=== PATIENT | male | born 1990 | race Caucasian/White ===

== ENCOUNTER 2017-08-14 14:10 | Emergency (ER) | payer MEDICAID, SELFPAY ==
[2017-08-14 14:12] VITALS: BP 161/128; PULSE 77; RESP 24; TEMP 36.4; O2SAT 99; BMI 19.9
[2017-08-14 14:16] VITALS: BP 114/87; PULSE 83; RESP 20; O2SAT 98
--- NOTE | 2017-08-14 15:06 | EKG12_ITS ---
Test Reason : SUBSTANCE ABUSE Blood Pressure : / mmHG Vent. Rate : 059 BPM Atrial Rate : 059 BPM P-R Int : 104 ms QRS Dur : 102 ms QT Int : 448 ms P-R-T Axes : 062 077 049 degrees QTc Int : 443 ms Sinus bradycardia with sinus arrhythmia with short SC Incomplete right bundle branch block Nonspecific T wave abnormality Abnormal ECG Confirmed by DIONE VILLANUEVA, GWENDOLYN ([id number]), website/blog editor JOSE MALHOTRA ([id number]) on 08/19/2017 2:01:47 PM Referred By: STEF Confirmed By:GWENDOLYN PARHAM MD
--- NOTE | 2017-08-14 15:07 | ED.VISSUMM ---
- ER Visit Summary Date of Service: 08/14/17 Chief Complaint: Anxiety History of Present Illness: The patient is a 26 M with a history of anxiety and drug abuse. Patient states he last used meth around 930 last night. This morning he still feeling more anxious than normal and is concerned that his drugs were laced with something. He denies use of any opiates but states the symptoms remind him of heroin. He does complain of some waxing and waning chest pain. He denies nausea, vomiting, or shortness of breath. He denies suicidal ideation. Physical Examination: Vital signs are unremarkable. Patient is in no acute distress and is nontoxic appearing. Head and neck examination is normal. Heart is regular rate and rhythm. Palpable pulses are noted throughout. Do not appreciate any murmurs. Lungs are clear with good air movement throughout. Abdomen is soft and nontender. Bowel sounds are noted. Extremity examination is unremarkable with full range of motion. Neurologic examination reveals no focal deficits. Test Results: CBC does reveal elevated white count at 16.7 with 80% neutrophils. Chemistry studies revealed dehydration with a BUN of 35 and creatinine 1.32. EKG is sinus at 59 with no sign of ischemia. Urine tox is positive for meth. Emergency Department Course and Treatment: Patient was given a liter and a half of IV fluids along with p.o. Vistaril. On repeat evaluation he is sleeping comfortably. He easily awakens. He has no obvious source of infection. I believe his leukocytosis is likely reactive secondary to his drug use. Treatment Plan: [] Disposition: Discharge Impression: 1. Drug abuse 2. Anxiety This note was generated with [employer] dictation software. It may contain incorrect words, spelling, and punctuation that were not noted in review of the chart prior to signing ED Disposition - Plan for ED Patient: Chief Complaint: Subst Abuse Referrals: Tejal Trejo DO [Primary Care Provider] -
[2017-08-14] MEDS: hydrOXYzine PAM 25 MG Capsule PO (15:28)
[2017-08-14 15:29] VITALS: PULSE 75; RESP 14
[2017-08-14 15:49] LABS: Absolute Lymphocyte Count 2.81 X10^3/ul (0.83-4.51); Absolute Neutrophil Count 13.4 X10^3/uL (2.0-7.7); Basophil# 0.02 X10^3/uL; Basophil% 0.1 % (0-1); Eosinophil# 0.01 X10^3/uL; Eosinophils% 0.1 % (0-5); Hematocrit 44.4 % (40-54); Hemoglobin 15.8 g/dl (13.0-16.5); Lymphocyte # 2.81 X10^3/ul (4.0); Lymphocyte % 16.9 % (19-41); Mean Corp Hgb Conc 35.6 g/gl (32-36); Mean Corpuscular Hgb 31.5 pg (27.0-32.0); Mean Corpuscular Volume 88.6 fL (80-94); Mean Platelet Vol. 9.6 fl (6.2-12.0); Monocyte# 0.38 X10^3/uL; Monocyte% 2.3 % (0-10); Neutrophil # 13.39 X10^3/uL (2.7-7.7); Neutrophil % 80.4 % (47-70); POSITIVE COUNT NO; POSITIVE DIFFERENTIAL NO; POSITIVE MORPHOLOGY NO; Platelet Count 261 K/mm3 (150-450); RBC Distribution Width CV 12.1 % (11.6-14.6); RBC Distribution Width SD 38.8 fl (35.1-43.9); Red Blood Count 5.01 M/mm3 (4.6-6.2); White Blood Count 16.7 K/mm3 (4.4-11.0)
[2017-08-14 15:51] LABS: Anion Gap 11 (5-15); BUN 35 mg/dL (7-18); BUN/Creat Ratio 26.5 RATIO (10-20); Calcium,Total 9.7 mg/dL (8.5-10.1); Chloride 102 mmol/L (98-107); Creatinine, Serum 1.32 mg/dL (0.70-1.30); EST Glomerular Filtration Rate 70 mL/min (>60); Est Glom Filt Rate - Afr Amer 85 mL/min (>60); Estimated Creatinine Clearance 81.41 ml/min; Glucose 99 mg/dL (74-106); Potassium 3.7 mmol/L (3.5-5.1); Sodium Level 136 mmol/L (136-145)
[2017-08-14] MEDS: 0.9% Normal Saline 1,000 ML 999 ML IV (16:05)
[2017-08-14 16:06] VITALS: BP 114/74; PULSE 83; RESP 18; O2SAT 100
[2017-08-14 17:21] VITALS: BP 119/74; PULSE 64; RESP 14; O2SAT 100
[2017-08-14 18:24] LABS: Amphetamine Urine VISTA POSITIVE (<1000 ng/mL); Barbiturate Urine VISTA NEGATIVE (< 200 ng/mL); Benzodiazepine Urine VISTA NEGATIVE (< 200 ng/mL); Cocaine Urine VISTA NEGATIVE (< 300 ng/mL); Ecstacy Urine VISTA POSITIVE (< 500 ng/mL); Methadone Urine VISTA NEGATIVE (< 300 ng/mL); PCP Urine VISTA NEGATIVE (< 25 ng/mL); THC Urine VISTA NEGATIVE (< 50 ng/mL); Vista UDS pH Range 5
[2017-08-14 18:33] VITALS: BP 112/58; PULSE 62; RESP 14; O2SAT 100
--- NOTE | 2017-08-14 18:33 | ED.DEP ---
ED Disposition - Plan for ED Patient: Disposition: Home or Assisted Living Chief Complaint: Subst Abuse Instructions: ED Drug Abuse General Referrals: Tejal Trejo DO [Primary Care Provider] - EIGHTY,ONE [STAFF PHYSICIAN] -
--- NOTE | 2017-08-14 18:54 | ED.RN ---
PT GIVEN WRITTEN AND VERBAL DISCHARGE INSTRUCTIONS AND VERBALIZES UNDERSTANDING. DENIES ANY FURTHER QUESTIONS. IV D/C AND COVERED WITH 2X2 GAUZE DRESSING. PT AMBULATORY OUT OF DEPT BY SELF.
== END 2017-08-14 18:55 | disposition home or self-care (01) ==
PROVIDERS: Emergency Provider Emergency Medicine; Family Provider Family Medicine; PCP Family Medicine
DX: F41.9 Anxiety disorder, unspecified (principal); F12.10 Cannabis abuse, uncomplicated; F15.10 Other stimulant abuse, uncomplicated; Z72.0 Tobacco use
CPT/HCPCS: 80048; 80307; 85025; 93005; 96360; 96361; 99285; J7030; J7040; A4216

== ENCOUNTER 2017-11-12 18:49 | Observation (INO) | payer MEDICAID, SELFPAY ==
[2017-11-12] VITALS (7 sets, daily range): BP systolic 91–126; BP diastolic 61–84; PULSE 58–81; RESP 13–28; TEMP 36–36.8; O2SAT 96–100; BMI 18.4; BMI 19.3; BMI 19.4
[2017-11-12] MEDS: 0.9% Normal Saline 1,000 ML 1000 ML IV ×2 (19:42→19:43)
[2017-11-12] MEDS: LORazepam 2 MG/ML Syringe 1 MG IV (19:43)
[2017-11-12 19:57] LABS: Absolute Neutrophil Count 6.2 X10^3/uL (2.0-7.7); Basophil# 0.06 X10^3/uL; Basophil% 0.6 % (0-1); Eosinophil# 0.01 X10^3/uL; Eosinophils% 0.1 % (0-5); Hematocrit 42.5 % (40-54); Hemoglobin 14.6 g/dl (13.0-16.5); Lymphocyte % 25.6 % (19-41); Mean Corp Hgb Conc 34.4 g/gl (32-36); Mean Corpuscular Hgb 30.5 pg (27.0-32.0); Mean Corpuscular Volume 88.7 fL (80-94); Mean Platelet Vol. 9.9 fl (6.2-12.0); Monocyte# 1.25 X10^3/uL; Monocyte% 12.3 % (0-10); Neutrophil # 6.23 X10^3/uL (2.7-7.7); Neutrophil % 61.3 % (47-70); Platelet Count 265 K/mm3 (150-450); RBC Distribution Width CV 12.1 % (11.6-14.6); RBC Distribution Width SD 38.9 fl (35.1-43.9); Red Blood Count 4.79 M/mm3 (4.6-6.2); White Blood Count 10.2 K/mm3 (4.4-11.0)
[2017-11-12 19:58] LABS: POSITIVE COUNT NO; POSITIVE DIFFERENTIAL NO; POSITIVE MORPHOLOGY NO
[2017-11-12 20:04] LABS: Anion Gap 10 (5-15); BUN 15 mg/dL (7-18); BUN/Creat Ratio 15.5 RATIO (10-20); Chloride 104 mmol/L (98-107); Creatinine, Serum 0.97 mg/dL (0.70-1.30); EST Glomerular Filtration Rate 100 mL/min (>60); Est Glom Filt Rate - Afr Amer 122 mL/min (>60); Estimated Creatinine Clearance 104.57 ml/min; Glucose 104 mg/dL (74-106); Sodium Level 138 mmol/L (136-145)
[2017-11-12 20:16] LABS: CPK Total, Creatine Kinase 347 U/L (39-308)
[2017-11-12 21:12] LABS: D-Dimer Quantitative (DVT/PE) < 0.27 FEU/ug/m (0.27-0.49)
[2017-11-12] MEDS: Ziprasidone IM 20 MG/ML VIAL IM (22:02)
--- NOTE | 2017-11-12 22:24 | PCM.CONS.C ---
Reason for Consult Date of Consultation: 11/12/17 Reason for Consultation: Abnormal EKG History of Present Illness: The patient is a 27 year old M with no previous medical history who was brought in by EMS after colleagues found him outside the [employer]ood[employer] somewhat obtunded after apparently attending a voodoo dinner. He had admitted to using some drugs exact types unknown but probably including meth and in the ER was somewhat belligerent and had an EKG done which demonstrated T-wave inversions noted anteriorly. Cardiac enzymes and d-dimer were noted to be negative. He denied any chest pain or shortness breath or paroxysmal nocturnal dyspnea pedal edema. The emergency room physician sent me the EKG for evaluation and possible triage. The decision was made to admit him and watch him overnight. [] Past Medical History Allergies/Adverse Reactions: Allergies No Known Allergies Allergy (Verified 11/12/17 18:50) Home Medications: Ambulatory Orders Medication Instructions Recorded NK [NK] 08/14/17 Surgical History: appendectomy Smoking Status: Current every day smoker Alcohol: Occasional Drugs: Cocaine, Heroin Review of Systems - Review of Systems General: Reports: Fatigue, Malaise. Denies: Fever, Night Sweats Cardiovascular: Denies: Chest Discomfort, Shortness of Breath, Orthopnea, PND, Peripheral Edema, Palpitations, Lightheadedness, Dizziness, Near Syncope, Syncope Respiratory: Denies: Cough, Sputum Production, Hemoptysis Gastrointestinal: Denies: Hematemesis, Hematochezia, Melena Genitourinary: Denies: Dysuria, Hematuria Skin: Denies: Rash Subjectve: Young man in no apparent distress sleeping and not easy to arouse Objective: Vital Signs Temp Pulse Resp BP Pulse Ox 98.3 F 58 L 13 123/71 H 100 11/12/17 18:51 11/12/17 20:01 11/12/17 20:01 11/12/17 20:01 11/12/17 20:01 Oxygen Flow Rate (L/min) 2 Oxygen Delivery Method Nasal Cannula Weight: 140 lb Body Mass Index (BMI) 18.4 General: Awake, Alert, Oriented x 3 HEENT: PERRL, EOMI, Sclera Non Icteric Neck: Supple, Good ROM, No Lymph Node Enlargement Lungs: Clear to auscultation Cardiovascular: Regular Rhythm, Normal S1, Normal S2, No Murmurs, No Rubs, No Gallops Vascular: No Carotid Bruits, Normal Femoral Pulses, Normal Radial Pulses, Normal Dorsalis Pedal Pulse, Normal Posterior Tibial Pulses Abdomen: Bowel Sounds Present, Soft, Non Tender, No HSM, No Organomegaly Extremities: No Cyanosis, No Clubbing, No edema Neurological: No Focal Motor or Sensory Deficit 11/12/17 19:42: WBC 10.2, RBC 4.79, Hgb 14.6, Hct 42.5, MCV 88.7, MCH 30.5, MCHC 34.4, RDW 12.1, RDW Differential 38.9, Plt Count 265, MPV 9.9, Immature Gran % (Auto) 0.100, Neut % (Auto) 61.3, Lymph % (Auto) 25.6, Crook % (Auto) 12.3 H, Eos % (Auto) 0.1, Baso % (Auto) 0.6, Absolute Neuts (auto) 6.2, Total Counted Not Reportable 11/12/17 19:42: Sodium 138, Potassium 3.0 L, Chloride 104, Carbon Dioxide 24.0, Anion Gap 10, BUN 15, Creatinine 0.97, Est GFR (MDRD) Af Amer 122, Est GFR (MDRD) Non-Af 100, BUN/Creatinine Ratio 15.5, Glucose 104, Calcium 9.0 11/12/17 19:42: Troponin I < 0.015 11/12/17 19:42: D-Dimer Quant (PE/DVT) < 0.27 L Rhythm: EKG: Normal sinus rhythm with T-wave inversions noted in leads II, III and aVF and V3 through V5. Assessment/Plan 1. Abnormal EKG The exact etiology of the above is not known. With his drug history there is a concern as to whether he may have an underlying cardiomyopathy. We did discuss the possibility of him being discharged and following up as an outpatient but it was felt that he was unreliable for this and therefore decision was made to admit him obtain cardiac enzymes and obtain an echocardiogram to assess his left ventricular function. His electrolytes should also be corrected. Depending on the findings of the above further recommendations will be made. At this particular time no medication will be administered. Thank you for allowing me to participate in the care of your patient. Please don't hesitate to call if any issues arise
--- NOTE | 2017-11-12 22:28 | CON.PCM_ITS ---
Reason for Consult Date of Consultation: 11/12/17 Reason for Consultation: Abnormal EKG History of Present Illness: The patient is a 27 year old M with no previous medical history who was brought in by EMS after colleagues found him outside the [employer]ian[employer] somewhat obtunded after apparently attending a sabianism dinner. He had admitted to using some drugs exact types unknown but probably including meth and in the ER was somewhat belligerent and had an EKG done which demonstrated T-wave inversions noted anteriorly. Cardiac enzymes and d-dimer were noted to be negative. He denied any chest pain or shortness breath or paroxysmal nocturnal dyspnea pedal edema. The emergency room physician sent me the EKG for evaluation and possible triage. The decision was made to admit him and watch him overnight. [] Past Medical History Allergies/Adverse Reactions: Allergies No Known Allergies Allergy (Verified 11/12/17 18:50) Home Medications: Ambulatory Orders Medication Instructions Recorded NK [NK] 08/14/17 Surgical History: appendectomy Smoking Status: Current every day smoker Alcohol: Occasional Drugs: Cocaine, Heroin Review of Systems - Review of Systems General: Reports: Fatigue, Malaise. Denies: Fever, Night Sweats Cardiovascular: Denies: Chest Discomfort, Shortness of Breath, Orthopnea, PND, Peripheral Edema, Palpitations, Lightheadedness, Dizziness, Near Syncope, Syncope Respiratory: Denies: Cough, Sputum Production, Hemoptysis Gastrointestinal: Denies: Hematemesis, Hematochezia, Melena Genitourinary: Denies: Dysuria, Hematuria Skin: Denies: Rash Subjectve: Young man in no apparent distress sleeping and not easy to arouse Objective: Vital Signs Temp Pulse Resp BP Pulse Ox 98.3 F 58 L 13 123/71 H 100 11/12/17 18:51 11/12/17 20:01 11/12/17 20:01 11/12/17 20:01 11/12/17 20:01 Oxygen Flow Rate (L/min) 2 Oxygen Delivery Method Nasal Cannula Weight: 140 lb Body Mass Index (BMI) 18.4 General: Awake, Alert, Oriented x 3 HEENT: PERRL, EOMI, Sclera Non Icteric Neck: Supple, Good ROM, No Lymph Node Enlargement Lungs: Clear to auscultation Cardiovascular: Regular Rhythm, Normal S1, Normal S2, No Murmurs, No Rubs, No Gallops Vascular: No Carotid Bruits, Normal Femoral Pulses, Normal Radial Pulses, Normal Dorsalis Pedal Pulse, Normal Posterior Tibial Pulses Abdomen: Bowel Sounds Present, Soft, Non Tender, No HSM, No Organomegaly Extremities: No Cyanosis, No Clubbing, No edema Neurological: No Focal Motor or Sensory Deficit 11/12/17 19:42: WBC 10.2, RBC 4.79, Hgb 14.6, Hct 42.5, MCV 88.7, MCH 30.5, MCHC 34.4, RDW 12.1, RDW Differential 38.9, Plt Count 265, MPV 9.9, Immature Gran % (Auto) 0.100, Neut % (Auto) 61.3, Lymph % (Auto) 25.6, Desha % (Auto) 12.3 H, Eos % (Auto) 0.1, Baso % (Auto) 0.6, Absolute Neuts (auto) 6.2, Total Counted Not Reportable 11/12/17 19:42: Sodium 138, Potassium 3.0 L, Chloride 104, Carbon Dioxide 24.0, Anion Gap 10, BUN 15, Creatinine 0.97, Est GFR (MDRD) Af Amer 122, Est GFR (MDRD ) Non-Af 100, BUN/Creatinine Ratio 15.5, Glucose 104, Calcium 9.0 11/12/17 19:42: Troponin I < 0.015 11/12/17 19:42: D-Dimer Quant (PE/DVT) < 0.27 L Rhythm: EKG: Normal sinus rhythm with T-wave inversions noted in leads II, III and aVF and V3 through V5. Assessment/Plan 1. Abnormal EKG The exact etiology of the above is not known. With his drug history there is a concern as to whether he may have an underlying cardiomyopathy. We did discuss the possibility of him being discharged and following up as an outpatient but it was felt that he was unreliable for this and therefore decision was made to admit him obtain cardiac enzymes and obtain an echocardiogram to assess his left ventricular function. His electrolytes should also be corrected. Depending on the findings of the above further recommendations will be made. At this particular time no medication will be administered. Thank you for allowing me to participate in the care of your patient. Please don't hesitate to call if any issues arise
--- NOTE | 2017-11-12 22:58 | ED.RN ---
PT BECAME COMBATIVE, REFUSED MEDICATIONS. PT GIVEN GEODON BY JACOB TOMLINSON. PT NOW SLEEPING, RESPIRES EVEN AND UNLABORED. NEW IV INITIATED IN THE LEFT AC.
--- NOTE | 2017-11-12 23:01 | PCM.HP.STD ---
Problem List (1) Acute electrocardiogram changes Status: Acute (2) Polysubstance (including opioids) dependence, daily use Status: Acute (3) Amphetamine abuse Status: Chronic History of Present Illness Date of Admission: 11/12/17 Chief Complaint: Agitation and combative for last 4 days The patient is a 27 year old M with history of methamphetamine use for last 2-3 years was brought in by EMS when he was found obtunded, lethargic after attending a mormonism dinner. In the ED, patient was very agitated and combative and was given Ativan and Geodon 20 mg IM. Patient was found sedated until I started examining then he became again calmative. As per the mother and his brother near the bedside he has been having agitation, combative and bizarre behavior and has not slept for last 4 days. Patient snores methamphetamine and probably has cocktail of meth plus heroin Her About 1 AM today. As per the mother patient is having chills, possible subjective fever and had chest pain for about 20 minutes. He was also found to have fecal and urinary incontinence. In ED, his EKG at 1935 hrs. shows normal sinus rhythm with sinus arrhythmia, incomplete right bundle branch block with T waves in inferior and anterolateral leads. Second EKG at 2046 hrs. shows sinus bradycardia at 56 bpm. His previous EKG of 5 25,018 shows sinus bradycardia with sinus arrhythmia and incomplete right bundle branch block but no T-wave inversion. Cardiology was consulted for recent EKG changes. Dr. capellan already saw the patient. Past Medical History Past Medical History (Chronic Problems): Chronic Problems Amphetamine abuse (Chronic) Allergies No Known Allergies Allergy (Verified 11/12/17 18:50) Home Medications: Ambulatory Orders Medication Instructions Recorded NK [NK] 08/14/17 Surgical History: appendectomy Smoking Status: Current every day smoker Alcohol: Occasional Drugs: Cocaine, Heroin Review of Systems Unable to obtain accurate/complete ROS d/t: Patient is sedated and also intermittent agitation and altered mental statu VTE Information - Inpt Only VTE Present on Admission: No VTE Mechan Device Prophylaxis: None VTE Pharm Prophylaxis ordered?: No Reason prophylaxis not ordered:: Procedure Not Indicated Patient Problems: Active and Suspected Problems Acute electrocardiogram changes (Acute) Polysubstance (including opioids) dependence, daily use (Acute) - Physical Exam General: Lethargic, Non-Cooperative, - - Sedated HEENT: Atraumatic, Normocephalic, - - Could not examine pupil. Mild redness present patient is indicated. Not cooperative Oral: Dry Mucosa Neck: Supple, No JVD, Negative Carotid Bruits Lungs: Clear to auscultation, Normal air movement, No rhonchi, No wheeze, No rales Cardiovascular: Regular rate, Normal S1, Normal S2, No murmurs Abdomen: Bowel Sounds Present, Soft, Non Tender, Non-Distended Extremities: No edema, Capillary Refill Less than 3 Seconds Skin: No rashes, No breakdown Musculoskeletal: No Tenderness to Palpation of Joints or Extremities Neurological: Cranial nerves II-XII grossly intact Psych/Mental Status: Normal Affect, Appropriate Vital Signs Temp Pulse Resp BP Pulse Ox 98.3 F 67 15 91/61 100 11/12/17 18:51 11/12/17 22:42 11/12/17 22:42 11/12/17 22:42 11/12/17 22:42 Oxygen Flow Rate (L/min) 2 Oxygen Delivery Method Nasal Cannula Weight: 140 lb Body Mass Index (BMI) 18.4 Laboratory Tests Past 24 Hrs 11/12/17 11/12/17 11/12/17 19:42 19:42 19:42 WBC 10.2 RBC 4.79 Hgb 14.6 Hct 42.5 MCV 88.7 MCH 30.5 MCHC 34.4 RDW 12.1 RDW Differential 38.9 Plt Count 265 MPV 9.9 Immature Gran % (Auto) 0.100 Neut % (Auto) 61.3 Lymph % (Auto) 25.6 Vilas % (Auto) 12.3 H Eos % (Auto) 0.1 Baso % (Auto) 0.6 Absolute Neuts (auto) 6.2 Absolute Lymphs (auto) 2.60 Total Counted Not Reportable D-Dimer Quant (PE/DVT) Sodium 138 Potassium 3.0 L Chloride 104 Carbon Dioxide 24.0 Anion Gap 10 BUN 15 Creatinine 0.97 Estim Creat Clear Calc 104.57 Est GFR (MDRD) Af Amer 122 Est GFR (MDRD) Non-Af 100 BUN/Creatinine Ratio 15.5 Glucose 104 Calcium 9.0 Total Creatine Kinase 347 H Troponin I < 0.015 11/12/17 19:42 WBC RBC Hgb Hct MCV MCH MCHC RDW RDW Differential Plt Count MPV Immature Gran % (Auto) Neut % (Auto) Lymph % (Auto) Vil[place] % (Auto) Eos % (Auto) Baso % (Auto) Absolute Neuts (auto) Absolute Lymphs (auto) Total Counted D-Dimer Quant (PE/DVT) < 0.27 L Sodium Potassium Chloride Carbon Dioxide Anion Gap BUN Creatinine Estim Creat Clear Calc Est GFR (MDRD) Af Amer Est GFR (MDRD) Non-Af BUN/Creatinine Ratio Glucose Calcium Total Creatine Kinase Troponin I Assessment/Plan All Active Problems Acute electrocardiogram changes (Acute) Polysubstance (including opioids) dependence, daily use (Acute) The patient is a 27 year old M with history of methamphetamine use for last 2-3 years was brought in by EMS when he was found obtunded, lethargic after attending a mormonism dinner. In the ED, patient was very agitated and combative and was given Ativan and Geodon 20 mg IM. Patient was found sedated until I started examining then he became again calmative. As per the mother and his brother near the bedside he has been having agitation, combative and bizarre behavior and has not slept for last 4 days. Patient snores methamphetamine and probably has cocktail of meth plus heroin Her About 1 AM today. As per the mother patient is having chills, possible subjective fever and had chest pain for about 20 minutes. He was also found to have fecal and urinary incontinence. In ED, his EKG at 1935 hrs. shows normal sinus rhythm with sinus arrhythmia, incomplete right bundle branch block with T waves in inferior and anterolateral leads. Second EKG at 6 hrs. shows sinus bradycardia at 56 bpm. His previous EKG of 5 ,018 shows sinus bradycardia with sinus arrhythmia and incomplete right bundle branch block but no T-wave inversion. Cardiology was consulted for recent EKG changes. Dr. capellan already saw the patient. 1. Recent EKG changes: Patient is being admitted in PCU for serial troponin. 2D echo tomorrow morning. First troponin is negative. D-dimer is negative. 2. Methamphetamine use and dependence with possibility of heroin: manager practice consult. 3. Acute encephalopathy with agitation and delirium secondary to methamphetamine use: Needs orientation cues from nursing staff. 4 Mild elevated CK, mainly from agitation; does not meet the range of acute rhabdomyolysis: Follow sicca tomorrow morning. IV fluid normal saline 5 Mild hypokalemia: Potassium is 3.0. Potassium on replacement. Check magnesium tomorrow a.m. DVT prophylaxis: Low risk. No prophylaxis indicated. Early ambulation encouraged. Laboratory Results 11/12/17 19:42: WBC 10.2, RBC 4.79, Hgb 14.6, Hct 42.5, MCV 88.7, MCH 30.5, MCHC 34.4, RDW 12.1, RDW Differential 38.9, Plt Count 265, MPV 9.9, Immature Gran % (Auto) 0.100, Neut % (Auto) 61.3, Lymph % (Auto) 25.6, [place] % (Auto) 12.3 H, Eos % (Auto) 0.1, Baso % (Auto) 0.6, Absolute Neuts (auto) 6.2, Absolute Lymphs (auto) 2.60, Total Counted Not Reportable 11/12/17 19:42: Sodium 138, Potassium 3.0 L, Chloride 104, Carbon Dioxide 24.0, Anion Gap 10, BUN 15, Creatinine 0.97, Estim Creat Clear Calc 104.57, Est GFR (MDRD) Af Amer 122, Est GFR (MDRD) Non-Af 100, BUN/Creatinine Ratio 15.5, Glucose 104, Calcium 9.0 11/12/17 19:42: Total Creatine Kinase 347 H, Troponin I < 0.015 11/12/17 19:42: D-Dimer Quant (PE/DVT) < 0.27 L 11/12/17 19:42: Magnesium Pending Clinical Impression(s) from Imaging Studies Chest X-Ray 11/12/17 19:27 IMPRESSION: Stable examination demonstrating no acute cardiopulmonary process. Code Visit OBSV E&M: 17423 Initial observation care L3
--- NOTE | 2017-11-12 23:17 | NURSING ---
CALLED ED CHARGE NURSE SUHAIL JENKINS TO SEND PATIENT TO THE FLOOR.
--- NOTE | 2017-11-12 23:46 | ED.DCSUM_ITS ---
- ER Visit Summary Date of Service: 11/12/17 Chief Complaint: Shortness of breath History of Present Illness: The patient is a [address] Trejo. He is a poor informant. He reports that he snorts methamphetamine. He denies any IV drug abuse. He reports that last night at approximately 1 AM he used meth and is concerned that it was laced with heroin. He reports is been short of breath since that time. Sick continuous sensation that waxes and wanes. It is unchanged exertion or lying flat. In fact he reports this improves with exertion. He has had subjective fever and chills. He denies any cough. He complains of an episode of chest pain proximal and 2 hours ago that lasted 20 minutes. It was a sharp pain. Reports that he does have a history of anxiety and does feel anxious. He denies any suicidal ideation. Patient reports that he has not slept for 4 days. Physical Examination: Vitals: Stable. Afebrile. General: Cachectic and well-developed. Head: Normocephalic atraumatic. Neck: Supple, no lymphadenopathy. No JVD. Nontender. Cardiovascular: Regular rate and rhythm. No murmurs. Respiratory: No respiratory distress. Clear to auscultation bilaterally. Hyperventilating. Abdominal: Soft, nontender, nondistended, normal bowel sounds. No guarding, rebound, or peritoneal signs. Back: Nontender. Extremities: Nontender, no edema. Skin: Normal color, no rash. Neurologic: Alert and oriented ?3. Cranial nerves II through XII are intact. Normal strength and sensation. Mental status exam: Patient appears their stated age. Good posture and grooming. Poor eye contact. Normal rate, volume, and latency of speech. No suicidal or homicidal ideation. No auditory or visual hallucinations. Flow of thought is tangential. Insight and judgment is poor. Test Results: EKG is sinus at 77 with T-wave inversions inferiorly in leads V3 to V6. This is a change from July of this year. Repeat EKG is unchanged. Troponin is negative. D-dimer is negative. CPK is 347. Chem-7 is more for potassium 3.0. CBC is marked for monocytes of 12. Emergency Department Course and Treatment: Patient had an IV placed. Is given a dose of Ativan IV. I wrote for aspirin K-Dur p.o. Patient refused to take these. He has become more agitated. Is given dose of Geodon IM. Treatment Plan: Patient was discussed with Dr. Mars was reviewed the EKGs. Patient is not reliable for outpatient follow-up and will be admitted for further evaluation and treatment. Patient was discussed with Dr. Campbell. Disposition: Admitted in improved condition. Impression: 1. Methamphetamine abuse. 2. Hypokalemia. 3. T-wave inversions. This note was generated with [employer] dictation software. It may contain incorrect words, spelling, and punctuation that were not noted in review of the chart prior to signing ED Disposition - Plan for ED Patient: Disposition: Acute Care Hospital [facility] Chief Complaint: Shortness of Breath
[2017-11-13] VITALS (8 sets, daily range): BP systolic 94–104; BP diastolic 49–63; PULSE 41–57; RESP 16–18; TEMP 36.3–36.7; O2SAT 96–100
[2017-11-13 00:36] LABS: Magnesium 2.2 mg/dL (1.6-2.6)
[2017-11-13 01:29] LABS: CPK Total, Creatine Kinase 241 U/L (39-308)
[2017-11-13] MEDS: 0.9% Normal Saline 1,000 ML 150 ML IV ×2 (03:47→09:28)
[2017-11-13 04:28] LABS: Anion Gap 10 (5-15); BUN 14 mg/dL (7-18); BUN/Creat Ratio 17.5 RATIO (10-20); Chloride 111 mmol/L (98-107); EST Glomerular Filtration Rate 125 mL/min (>60); Est Glom Filt Rate - Afr Amer 152 mL/min (>60); Estimated Creatinine Clearance 122.26 ml/min; Glucose 76 mg/dL (74-106); Potassium 4.5 mmol/L (3.5-5.1); Sodium Level 144 mmol/L (136-145)
--- NOTE | 2017-11-13 05:23 | NURSING ---
Admission weight not obtained due to room changed and bed not zero'd out before patient placed in bed. Pt combative and received geodon in ED prior to arrival to floor so patient was not removed from bed to zero it out to get an accurate weight.
--- NOTE | 2017-11-13 06:14 | NURSING ---
All documentation completed by SN Della reviewed by this RN. This RN agrees with all documentation 11/12/17-11/13/17
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
--- NOTE | 2017-11-13 11:33 | PCM.DC ---
- Discharge Diagnoses Current Active Problems: Current Active and Chronic Problems Acute electrocardiogram changes (Acute) Polysubstance (including opioids) dependence, daily use (Acute) Amphetamine abuse (Chronic) You will use the following diet at home:: No restrictions Your food should be the consistency of: Regular Your liquids should be the consistency of: Regular/Thin Discharge Activity: Return to Normal Activity Additional Instructions: Pursue drug rehab and please discontinue use of all recreational drugs Allergies/Adverse Reactions: Allergies No Known Allergies Allergy (Verified 11/12/17 18:50) Medications to take at Discharge NK [NK] 08/14/17 Primary Care Physician: Tejal Trejo DO [Primary Care Provider] - Please follow up with your Primary Care Physician in: 1-2 weeks Test Results: Test results from this visit will be discussed in further detail at your follow-up appointment, if applicable. Proposed Discharge Date: 11/13/17
--- NOTE | 2017-11-13 14:39 | PCM.DC.SUM ---
<Oscar Escobar - Last Filed: 11/13/17 14:39> Discharge Date and Diagnosis Date of Admission: 11/12/17 Date of Discharge: 11/13/17 - Primary Discharge Diagnosis Acute EKG changes - t wave inversions Toxic encephalopathy Meth abuse Hypokalemia - Secondary Discharge Diagnosis Chronic Problems Amphetamine abuse (Chronic) Hospital Course and Treatment Imaging Results: RAD/Chest 1 View (Portable) IMPRESSION: Stable examination demonstrating no acute cardiopulmonary process. Echo: Interpretation Summary Normal LV size. Left ventricular systolic function is normal. The estimated ejection fraction is 55 %. No evidence for diastolic dysfunction. Structurally normal valves. Consults: Cardiology - Jerad Operations: None Procedures: 2-D Echocardiogram Summary of Care Provided: Physical exam on day of discharge: General: Resting comfortably NAD Psych: A/Ox3 normal affect HEENT: PEARRLA AT NC Neck: Supple NT CV: RRR no m/t/r/g/h Resp: CTA Abd: [id number] Soft NT no guarding or rigidity Ext: DP2+= no edema Skin: W/D normal turgor Lymph/Heme: No active bleeding or adenopathy Neuro: CN2-12 intact Hospital course: The patient is a 27 year old M with a history of 4 years of meth abuse, was brought to the emergency room after being found lethargic at a catholic dinner. On arrival to the emergency room he was very agitated and combative. He was given IM Geodon and ativan. reportedly his behavior was bizarre for the past 4 days. He had an EKG in the ER which showed T wave abnormalities. Cardiology was consulted. He was admitted for overnight monitoring. Troponin was negative x3. D dimer was negative. Echo was obtained in the AM and was unremarkable. He was somewhat lethargic the following morning but otherwise asymptomatic. Social work provided him with resources for mental health and substance abuse. He was discharged home in stable condition and will need to follow up with his PCP in 1-2 weeks. This patient was seen by Oscar Escobar PA-C under the supervision of Doctor Franks. [] Discharge Diet: No Restrictions Discharge Activity: Return to Normal Activity Home Medications: Medications to take at Discharge NK [NK] 08/14/17 Primary Care Physician: Tejal Trejo DO [Primary Care Provider] - Please follow up with your Primary Care Physician in: 1-2 weeks Disposition: Home Minutes spent on discharge:: 35 Patient Condition:: Stable Medical Necessity - Tobacco Use Smoking Status: Current every day smoker Meaningful Use Info Meaningful Use Diagnoses (Choose all that apply): None applicable <Jeremy Franks E - Last Filed: 11/13/17 15:27> Discharge Date and Diagnosis - Secondary Discharge Diagnosis Chronic Problems Amphetamine abuse (Chronic) Hospital Course and Treatment Procedures: 2-D Echocardiogram, EKG Summary of Care Provided: Hospitalist note: Discharge summary above reviewed and I agree with above discharge plan. Patient was brought to the emergency room because he was found lethargic at catholic dinner. After arrival to ED, patient was agitated and combative and received 1 dose of IV Geodon and Ativan. He had an EKG done in the emergency room which revealed T-wave inversion in leads II and III as well as V3, V4 and V5 and those changes are new compared to his previous EKGs. Patient denies any chest pain or shortness of breath. His cardiac enzymes were negative ?2. His potassium was low at 3 which was replaced and corrected. Serum magnesium was normal. D-dimer was normal. Chest x-ray showed no acute findings. Patient was treated medically with IV fluids and monitoring. Repeat EKG from today revealed sinus bradycardia, otherwise no acute changes and those T-wave inversion is back to normal. Cardiology consulted and recommended echocardiogram that showed ejection fraction 55%, structurally normal valves and no evidence of diastolic dysfunction. He was bradycardic and this is attributed to being fit and active and doing lots of exercises. He was asymptomatic. Patient discharged home in a stable medical condition, no prescriptions given, recommended follow-up with PCP in 1-2 weeks. - Physical Exam General: Alert, Oriented x3, Cooperative, No apparent distress. HEENT: Atraumatic, PERRLA, EOMI. Neck: Supple, No JVD, Negative Carotid Bruits, Trachea Midline, Thyroid Normal. Lungs: Clear to auscultation, Normal air movement, No rhonchi, No wheeze, No rales. Cardiovascular: Regular rate, Regular Rhythm, Normal S1, Normal S2, PMI Normal, bradycardia. Abdomen: Bowel Sounds Present, Soft, Non Tender, Non-Distended, No Hepato-splenomegaly. Extremities: No clubbing, No cyanosis, No edema Skin: No rashes, No breakdown Neurological: Neuro grossly intact Vital Signs are stable. This note was generated with [employer] dictation software. It may contain incorrect words, spelling, and punctuation that were not noted in checking the note before signing. Minutes spent on discharge:: 24 Patient Condition:: Stable Meaningful Use Info Meaningful Use Diagnoses (Choose all that apply): None applicable Code Visit OBSV E&M: 63754 Observation care discharge
== END 2017-11-13 11:35 | disposition home or self-care (01) ==
LOC: ED 20:05 → PCU 23:13
PROVIDERS: Admitting Provider Internal Medicine; Emergency Provider Emergency Medicine; Family Provider Family Medicine; PCP Family Medicine; Visit Provider Hospitalist
DX: G92 Toxic encephalopathy (principal); E87.6 Hypokalemia; R94.31 Abnormal electrocardiogram [ECG] [EKG]; I45.10 Unspecified right bundle-branch block; F17.200 Nicotine dependence, unspecified, uncomplicated; F15.20 Other stimulant dependence, uncomplicated
CPT/HCPCS: 36415; 71045; 80048; 82550; 83735; 84484; 85025; 85379; 93005; 93306; 96361; 96372; 96374; 99218; 99284; J7030; J7040; A4216; G0378; J3486

== ENCOUNTER 2019-09-05 11:53 | Emergency (ER) | payer MEDICAID, SELFPAY ==
[2019-09-05 11:55] VITALS: BP 143/88; PULSE 94; RESP 16; TEMP 36.6; O2SAT 98; BMI 18.6
--- NOTE | 2019-09-05 12:15 | RAD_ITS ---
STUDY: X-RAY - RIGHT SHOULDER REASON FOR EXAM: Male, 28 years old. No injury, pain TECHNIQUE: 4 view(s) of the shoulder. COMPARISON: None. FINDINGS: Normal glenohumeral articulation. Normal acromioclavicular joint. Normal acromion. Normal humeral head and visualized proximal humerus. The soft tissue structures are unremarkable. Normal visualized pulmonary apex. RAD/Shoulder min 2 Views IMPRESSION: Normal x-ray examination of the shoulder. Electronically Signed: Blu Rollins, at 12:36 EDT , Service support ,
--- NOTE | 2019-09-05 12:19 | ED.VIS.GEN ---
History of Present Illness Chief Complaint: Upper Extremity Injury Informant: Patient Onset: Days Context: Gradual Onset Timing: Continuous Current Severity: Moderate Maximum Severity: Moderate Narrative: The patient is an otherwise healthy 28-year-old male who presents to the emergency department with right posterior shoulder pain. He states is been going on for about a week. 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 He gets a lot of tightness in his shoulder blade with motion. He denies any specific trauma. 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 He is otherwise been in his normal state of health. Prior similar symptoms: No Recent Illness/Hospitalization: No Past Medical History - Allergies and Home Meds Allergies/Adverse Reactions: Allergies No Known Allergies Allergy (Verified 09/05/19 11:54) Primary Care Physician: Care Physician,No Primary [Primary Care Provider] - Past Medical History: None Surgical History: appendectomy Smoking Status: Current every day smoker Review of Systems General: Denies: Chills, Fever, Sweats Eyes: Denies: Visual changes - bilaterally, Diplopia ENT: Denies: Rhinorrhea, Sore throat Cardiovascular: Denies: Chest pain, Palpitations Respiratory: Denies: Dyspnea, Cough, Dyspnea on exertion Gastrointestinal: Denies: Abdominal pain, Nausea, Vomiting, Diarrhea, Melena, Hematochezia Genitourinary: Denies: Dysuria, Hematuria, Frequency Musculoskeletal: Denies: Back pain, Extremity Pain Skin: Denies: Rash, Wounds Neurological: Denies: Headache, Weakness, Numbness Physical Exam Vital Signs/Narrative: Vital Signs Temp Pulse Resp BP Pulse Ox 09/05/19 11:55 97.9 F 94 16 143/88 H 98 Inital Vital Signs reviewed: Yes General: Well nourished, Well developed, No Acute Distress Head: Normocephalic, Atraumatic Eyes: Perrl, EOMI ENT: Moist mucous membranes, No rhinorrhea Neck: Supple, Nontender Cardiovascular: Regular rate, Regular rhythm, No murmurs Respiratory: No distress, CTA bilaterally, Chest nontender Abdomen: Soft, Nontender, Nondistended, Normal bowel sounds Back: Nontender, Normal Inspection Extremities: No edema, Tenderness - Patient is point tender in the rhomboid musculature. There is no step-off. Skin: Normal color, No rash Neurological: Alert, Oriented x3, Cranial nerves II-XII grossly intact, Normal Strength, Normal Sensation Psychological: Normal affect, Normal Mood Diagnostic/Tx/Re-eval Clinical Impression(s) from Imaging Studies Shoulder X-Ray 09/05/19 12:15 IMPRESSION: Normal x-ray examination of the shoulder. Electronically Signed: Blu Rollins, at 12:36 EDT , Service support , - Medical Decision Making The patient symptoms do seem entirely muscular. He is point tender near the rhomboid musculature. There is no gross laxity and he has no report of trauma. I did obtain x-rays of the shoulder which are unremarkable. I am going to treat the patient with anti-inflammatories and antispasmodics and have him follow-up with orthopedics as needed. Impression 1. Right posterior shoulder strain with muscular spasm ED Disposition - Plan for ED Patient: Instructions: ED Shoulder Sprain Prescriptions: cycloBENZAPRine HCl [Flexeril] 10 mg PO TID PRN #20 tab PRN Reason: Muscle Spasm Prescription Printed Naproxen [Naprosyn] 500 mg PO BID PRN #20 tab Prescription Printed Referrals: Care Physician,No Primary [Primary Care Provider] -
== END 2019-09-05 13:04 | disposition home or self-care (01) ==
LOC: ED 12:26
PROVIDERS: Emergency Provider Emergency Medicine
DX: S46.911A Strain of unspecified muscle, fascia and tendon at shoulder and upper arm level, right arm, initial encounter (principal); F17.200 Nicotine dependence, unspecified, uncomplicated; X58.XXXA Exposure to other specified factors, initial encounter
CPT/HCPCS: 73030; 99282

== ENCOUNTER 2021-05-15 09:23 | Emergency (ER) | payer MEDICAID, SELFPAY ==
[2021-05-15 09:24] VITALS: BP 154/100; PULSE 97; RESP 16; TEMP 36.2; O2SAT 99; BMI 20.5
--- NOTE | 2021-05-15 09:40 | EX.ED.DYSGE1 ---
HPI History of Present Illness Chief Complaint: Nausea/Vomiting Informant: patient Narrative Narrative: Patient presents with some nausea that started yesterday morning. He has had some soft stools also. He has not vomited. He is actually still able to eat and drink. Eating and drinking does make the nausea a little bit worse but does not induce vomiting. He has had no fevers chills runny nose sore throat congestion cough. He does not have any abdominal pain. He has not seen blood in the stool although it has been softer. He is already had appendectomy when he was younger. No known sick contacts. He was just concerned because the nausea still going on. He also has no chest or pulmonary symptoms. No headaches. No chronic medical conditions No current medications No known allergies Surgery is appendectomy years ago Prior history of amphetamine and polysubstance abuse. Denies now. Denies alcohol. [facility] Medical History Anxiety Bipolar disorder Depression Home Medications cyclobenzaprine 10 mg PO TID PRN #20 tab 09/05/19 [Rx Last Taken Unknown] naproxen 500 mg PO BID PRN #20 tab 09/05/19 [Rx Last Taken Unknown] ondansetron 4 mg PO Q8H PRN #10 tab 05/15/21 [Rx Last Taken Unknown] Allergy/AdvReac Type Severity Reaction Status Date / Time No Known Allergies Allergy Verified 09/05/19 11:54 Surgical History Hx of appendectomy Social History Smoking Status: Current every day smoker tobacco type: cigarettes ROS ROS ED Constitutional Constitutional ED: Denies chills or fever(s) Eyes Eyes: Denies change in vision ENT ENT ED: Denies rhinorrhea or sore throat Cardiovascular Cardiovascular: Denies chest pain Respiratory/Chest Respiratory/Chest: Denies cough, dyspnea or sputum Gastrointestinal Gastrointestinal: Reports nausea; Denies abdominal pain, constipation, diarrhea, melena or vomiting Genitourinary Genitourinary ED: Denies dysuria, hematuria or urinary frequency Musculoskeletal Musculoskeletal: Denies arthralgias or myalgias Integumentary Denies rash Neurologic Neurologic: Denies headache(s) Endocrine Endocrinology: Denies polydipsia or polyuria Allergic/Immunologic Allergic/Immunologic ED: Denies urticaria EXAM Physical Exam Const Vital Signs: 05/15/21 09:24 05/15/21 11:00 Temperature 97.1 F L Temperature Source Temporal Pulse Rate 97 Respiratory Rate 16 Blood Pressure 154/100 H 122/89 H Blood Pressure Mean 118 100 Pulse Ox 99 99 Oxygen Delivery Method Room Air Room Air Positive well nourished and well developed General Appearance ED: well developed and NAD; Negative for cyanotic, diaphoretic or pallor HEENT Reports moist mucous membranes; Denies dry mucous membranes Mouth ED: No dry mucous membranes Mouth: No dry mucous membranes Eyes General Eye ED: Negative for pale conjunctiva or scleral icterus Neck no JVD Resp normal respiratory effort and clear to auscultation bilaterally Effort and Inspection: Negative for pain with movement Auscultation: Negative for rales, rhonchi or wheezes Cardio regular rate and regular rhythm GI normal to inspection, nondistended, normoactive bowel sounds, non-tender, non-distended and no masses Auscultation: normoactive bowel sounds Palpation: soft; Negative for guarding Back/Spine no CVA tenderness Extremity normal to inspection General Extremety ED: Negative for edema or tenderness General Extremity: Negative for edema Neuro Sensorium / Orientation: alert Psych mental status grossly normal Skin no rashes or lesions noted General Skin Exam: Negative for jaundice or pallor MDM MDM MDM Narrative Medical decision making narrative: Patient feels much better after treatment. His abdomen is benign. We will get him home. We discussed reasons to return turn including fevers, pain, vomiting or other concerns. Discharge Plan Triage Chief Complaint: Nausea/Vomiting ED Provider: Junito Pires Dx/Rx/DC Orders Clinical Impression: Nausea Instructions: Nausea Vomit Control Prescriptions: New ondansetron 4 mg tablet,disintegrating 4 mg PO Q8H PRN (Reason: nausea and vomiting) Qty: 10 RF: 0 No Action cyclobenzaprine 10 MG tablet 10 mg PO TID PRN (Reason: Muscle Spasm) Qty: 20 RF: 0 naproxen 500 MG tablet 500 mg PO BID PRN Qty: 20 RF: 0 Primary Care Provider: Care Physician,No Primary Referrals: Dakota Wilde DO [STAFF PHYSICIAN] - 1-2 Days if not improving Care Physician,No Primary [Primary Care Provider] - Disposition Disposition: Home, Self Care
[2021-05-15] MEDS: Ondansetron ODT 4 MG Tablet PO (09:49)
[2021-05-15 11:00] VITALS: BP 122/89; O2SAT 99
== END 2021-05-15 11:49 | disposition home or self-care (01) ==
PROVIDERS: Emergency Provider Emergency Medicine; Visit Provider Emergency Medicine
DX: R11.2 Nausea with vomiting, unspecified (principal); F17.210 Nicotine dependence, cigarettes, uncomplicated
CPT/HCPCS: 99282

== ENCOUNTER 2021-05-17 09:02 | Emergency (ER) | payer MEDICAID, SELFPAY ==
[2021-05-17 09:02] VITALS: BP 154/90; PULSE 90; RESP 16; TEMP 36.2; O2SAT 100; BMI 20.9
--- NOTE | 2021-05-17 10:04 | EX.ED.DYSGE1 ---
HPI History of Present Illness Chief Complaint: Rash Narrative Narrative: Patient's had a rash on his forearms for couple days. 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 Only rash is on the volar forearms bilaterally. He wears gloves and is not under the glove area. He does not feel ill or sick. Nothing he knows of makes it better but he has not tried anything on it. No fevers chills nausea vomiting. No rash in any other areas. PFSH PFS Medical History Anxiety Bipolar disorder Depression Home Medications cyclobenzaprine 10 mg PO TID PRN #20 tab 09/05/19 [Rx Last Taken Unknown] naproxen 500 mg PO BID PRN #20 tab 09/05/19 [Rx Last Taken Unknown] ondansetron 4 mg PO Q8H PRN #10 tab 05/15/21 [Rx Last Taken Unknown] hydrocortisone 1 applic TOPICAL BID 7 Days #30 g 05/17/21 [Rx Last Taken Unknown] Allergy/AdvReac Type Severity Reaction Status Date / Time No Known Allergies Allergy Verified 09/05/19 11:54 Surgical History Hx of appendectomy Social History Smoking Status: Current every day smoker tobacco type: cigarettes ROS ROS ED Constitutional Constitutional ED: Denies chills or fever(s) Eyes Eyes: Denies blurry vision ENT ENT ED: Denies rhinorrhea or sore throat Respiratory/Chest Respiratory/Chest: Denies cough Gastrointestinal Gastrointestinal: Denies nausea or vomiting Musculoskeletal Musculoskeletal: Denies arthralgias or myalgias Integumentary Reports rash Neurologic Neurologic: Denies headache(s) or weakness Allergic/Immunologic Allergic/Immunologic ED: Denies mouth swelling or urticaria EXAM Physical Exam Const Vital Signs: 05/17/21 09:02 Temperature 97.2 F L Temperature Source Temporal Pulse Rate 90 Respiratory Rate 16 Blood Pressure 154/90 H Blood Pressure Mean 111 Pulse Ox 100 Oxygen Delivery Method Room Air Positive well nourished and well developed General Appearance ED: well developed and NAD; Negative for cyanotic or diaphoretic HEENT Reports moist mucous membranes HEENT Narrative: No petechiae. Eyes General Eye ED: Negative for pale conjunctiva or scleral icterus Neck no JVD Resp normal respiratory effort GI normal to inspection, nondistended, normoactive bowel sounds and non-tender Palpation: soft Back/Spine no CVA tenderness Extremity Extremity Narrative: Bilateral forearms have raised red areas that look like contact dermatitis. There is no blisters. There is no pustules. This does not represent as diffuse hives all over though. This is really isolated to bilateral volar forearms a little bit more on the left than the right. No involvement of palms. No involvement of the dorsum of the arms. Neuro Sensorium / Orientation: alert Skin Skin Narrative: See above. MDM MDM MDM Narrative Medical decision making narrative: Patient's rash and exposure can are consistent with a contact dermatitis. Topical ointment and avoidance of what ever is bothering him is the treatment. I explained he needs to pay significant attention to exposures. He needs to make sure he does not get chemicals on his clothing that are keeping that material next to his skin for a long period of time. Discharge Plan Triage Chief Complaint: Rash ED Provider: Junito Pires Dx/Rx/DC Orders Clinical Impression: Contact dermatitis Instructions: ED Contact Dermatitis Prescriptions: New hydrocortisone 2.5 % cream 1 applic topical BID 7 Days Qty: 30 RF: 0 No Action cyclobenzaprine 10 MG tablet 10 mg PO TID PRN (Reason: Muscle Spasm) Qty: 20 RF: 0 naproxen 500 MG tablet 500 mg PO BID PRN Qty: 20 RF: 0 ondansetron 4 mg tablet,disintegrating 4 mg PO Q8H PRN (Reason: nausea and vomiting) Qty: 10 RF: 0 Primary Care Provider: Care Physician,No Primary Referrals: Daniela Copeland MD [STAFF PHYSICIAN] - 1 Week if not improving Care Physician,No Primary [Primary Care Provider] - Disposition Disposition: Home, Self Care
[2021-05-17 10:09] VITALS: RESP 18
== END 2021-05-17 10:41 | disposition home or self-care (01) ==
LOC: ED 10:24
PROVIDERS: Emergency Provider Emergency Medicine; Visit Provider Emergency Medicine
DX: L25.9 Unspecified contact dermatitis, unspecified cause (principal); F17.210 Nicotine dependence, cigarettes, uncomplicated
CPT/HCPCS: 99282

== ENCOUNTER 2021-09-19 15:48 | Emergency (ER) | payer MEDICAID, SELFPAY ==
[2021-09-19 15:48] VITALS: BP 131/83; PULSE 84; RESP 16; TEMP 37.3; O2SAT 98; BMI 19.6
--- NOTE | 2021-09-19 16:24 | EX.ED.DYSGE1 ---
HPI <GAVIN Perez - Last Filed: 09/19/21 17:05> History of Present Illness Chief Complaint: Ear Problem Narrative Narrative: 30-year-old male with no significant ankle history presents to the emergency department with complaints of right ear pain, throat pain for last 2 days. Patient has felt generalized fatigue, subjective fever and chills, patient is here for evaluation. Denies any nausea vomiting. Patient denies any drainage, denies it being on any pools or bodies of water. Denies any sick contacts PFSH <GAVIN Perez - Last Filed: 09/19/21 17:05> [facility] Medical History Anxiety Bipolar disorder Depression Home Medications cyclobenzaprine 10 mg tablet 10 mg PO TID PRN Muscle Spasm #20 tabs 09/05/19 [Rx Last Taken Unknown] naproxen 500 mg tablet 500 mg PO BID PRN #20 tabs 09/05/19 [Rx Last Taken Unknown] ondansetron 4 mg disintegrating tablet 4 mg PO Q8H PRN nausea and vomiting #10 tabs 05/15/21 [Rx Last Taken Unknown] hydrocortisone 2.5 % topical cream 1 applic topical BID 7 days #30 grams 05/17/21 [Rx Last Taken Unknown] penicillin V potassium 500 mg tablet 500 mg PO 4X/DAY #28 tabs 09/19/21 [Rx Last Taken Unknown] Allergy/AdvReac Type Severity Reaction Status Date / Time No Known Allergies Allergy Verified 09/19/21 15:48 Surgical History Hx of appendectomy Social History Smoking Status: Current every day smoker tobacco type: cigarettes ROS <GAVIN Perez - Last Filed: 09/19/21 17:05> ROS ED ROS Narrative Constitutional: Negative for fever, chills, weight loss, weakness Eyes: Negative for vision loss, vision change, double vision ENT: Negative for any positive or sore throat, right ear pain Cardiovascular: Negative for any chest pain, tightness, palpitations Respiratory: Negative for any cough, sputum production, hemoptysis, dyspnea, dyspnea on exertion, orthopnea Gastrointestinal: Negative for any abdominal pain, nausea, vomiting, diarrhea, constipation, blood in stool, blood in vomit : Negative for any urinary frequency, dysuria, retention, blood in urine Muscle skeletal: Negative for any muscle joint pain, stiffness, myalgias, arthralgias, neck pain, back pain Neurological: Negative for any headache, syncope, numbness or tingling, dizziness Skin: Negative for any rashes, lumps, itching, abrasions, lacerations Psychiatric: Negative for any depression, anxiety, stress, suicidal ideation, homicidal ideation Hematologic: Negative for any easy bruising, excessive bruising, easy bleeding Allergies: Negative for any eczema, hives, rash EXAM <GAVIN Perez - Last Filed: 09/19/21 17:05> Physical Exam Narrative Exam Narrative: Vital signs reviewed. HEET: Head normocephalic atraumatic, patient's left ear is within normal limits, patient's right ear shows a decreased light reflex, slight erythema. Posterior pharynx is clear, moist mucous membranes. Nares clear bilaterally. She has +3 tonsils with exudate bilaterally. Negative for any deep tissue infection, negative for any abscess. Neck: Supple with no lymphadenopathy or tenderness. No signs of meningismus, negative jolt sign. Cardiac: Regular rate and rhythm no murmurs gallops or rubs, equal peripheral pulses bilaterally. Respiratory: Lungs clear to auscultation bilaterally. No chest tenderness. Abdomen: Soft, nontender, nondistended. No abdominal bruit or pulsatile masses. No hepatosplenomegaly Extremities: No peripheral edema, no signs of gross trauma or deformity. Active full range of motion of all extremities. Neuro: Cranial nerves II through XII intact, no focal neurological deficits. Skin: Clean dry and intact with no rash, purpura, petechiae, vesicles or pustules. Backs/flank: No CVA tenderness, no midline spinal tenderness, no deformity. Psych: Normal mood and affect. No SI, HI or acute psychosis. Const Vital Signs: 09/19/21 15:48 Temperature 99.1 F Temperature Source Temporal Pulse Rate 84 Respiratory Rate 16 Blood Pressure 131/83 H Blood Pressure Mean 99 Pulse Ox 98 Oxygen Delivery Method Room Air <Dr. Blayne Aquino MD - Last Filed: 09/19/21 18:37> Physical Exam Const Vital Signs: 09/19/21 15:48 Temperature 99.1 F Temperature Source Temporal Pulse Rate 84 Respiratory Rate 16 Blood Pressure 131/83 H Blood Pressure Mean 99 Pulse Ox 98 Oxygen Delivery Method Room Air [facility] <GAVIN Perez - Last Filed: 09/19/21 17:05> [facility] Lab Data Labs: Laboratory Results - last 24 hr 09/19/21 16:35 WBC 11.2 H RBC 4.35 L Hgb 13.8 Hct 39.7 L MCV 91.3 MCH 31.7 MCHC 34.8 RDW Std Deviation 38.2 RDW Coeff of Sylvester 11.3 L Plt Count 200 MPV 10.0 Immature Gran % (Auto) 0.400 Neut % (Auto) 72.7 H Lymph % (Auto) 13.1 L Highland % (Auto) 12.2 H Eos % (Auto) 1.2 Baso % (Auto) 0.4 Absolute Neuts (auto) 8.2 H Absolute Lymphs (auto) 1.47 Nucleated RBC % 0 Treatment and Re-Evaluation Narrative: Patient appears well, patient appears nontoxic, vital signs are stable. Patient presents to the emergency department right ear pain as well sore throat. Patient did receive a rapid strep as well as a CBC concerning for strep infection or mononucleosis. Patient was positive for rapid strep. Patient will be treated with Pen-Vee K, he will be treated 4 times a day for 7 days. He will take Motrin Tylenol for discomfort. Patient verbally understands the importance of follow-up. Patient is stable for discharge instructed return for any worsening symptoms <Dr. Blayne Aquino MD - Last Filed: 09/19/21 18:37> [facility] Narrative Medical decision making narrative: I have personally performed a face to face assessment of the patient and have reviewed the KIAN Note. I performed a substantive portion of the visit including all aspects of the following. My hurt findings include: History is remarkable sore throat, ear pain that started 2 days ago. He denies fever. Denies cough. Denies rhinorrhea. He does endorse fatigue. He denies abdominal pain. Exam is patient appears ill but not toxic. Vital signs were noted. HEENT exam is remarkable for exudative tonsillitis. Nares patent with no discharge. TMs unremarkable retracted left TM only. Shotty cervical nodes anteriorly. Trachea midline. No in-store extra stridor. No dysphonia. Heart is regular without murmur, gallop or rub. There is no history of rheumatic fever, heart murmur, SBE or IV drug use. Patient denies rash. Medical Decision Making patient Centor score is 2. Rapid strep was obtained. Rapid strep was positive. He was treated with penicillin. CBC was obtained to assess for atypical lymphocytes since he has very large tonsils with significant exudate to evaluate for mononucleosis. Monospot test was not obtained since his illness is only been 2 days and has a low sensitivity at 2 days. Other additions or changes: None Lab Data Attestation: I reviewed the patient's lab results. Labs: Laboratory Results - last 24 hr 09/19/21 16:35 WBC 11.2 H RBC 4.35 L Hgb 13.8 Hct 39.7 L MCV 91.3 MCH 31.7 MCHC 34.8 RDW Std Deviation 38.2 RDW Coeff of Sylvester 11.3 L Plt Count 200 MPV 10.0 Immature Gran % (Auto) 0.400 Neut % (Auto) 72.7 H Lymph % (Auto) 13.1 L Highland % (Auto) 12.2 H Eos % (Auto) 1.2 Baso % (Auto) 0.4 Absolute Neuts (auto) 8.2 H Absolute Lymphs (auto) 1.47 Nucleated RBC % 0 Discharge Plan Triage Chief Complaint: Ear Problem ED Midlevel Provider: Dimitry Aguillon ED Provider: Blayne Aquino Dx/Rx/DC Orders Clinical Impression: Strep sore throat Prescriptions: New penicillin V potassium 500 mg tablet 500 mg PO 4X/DAY Qty: 28 0RF No Action cyclobenzaprine 10 MG tablet 10 mg PO TID PRN (Reason: Muscle Spasm) Qty: 20 0RF naproxen 500 MG tablet 500 mg PO BID PRN Qty: 20 0RF ondansetron 4 mg tablet,disintegrating 4 mg PO Q8H PRN (Reason: nausea and vomiting) Qty: 10 0RF hydrocortisone 2.5 % cream 1 applic topical BID 7 Days Qty: 30 0RF Primary Care Provider: Care Physician,No Primary Referrals: Elizabeth Banegas MD [STAFF PHYSICIAN] - Care Physician,No Primary [Primary Care Provider] - Activity Restrictions/Additional Instructions: You are being diagnosed with strep throat, take the penicillin until empty, throw the bottle away empty. Take ibuprofen, Tylenol for any pain Print Language: Tongan Disposition Disposition: Home, Self Care Discharge Date/Time: 09/19/21 17:16
[2021-09-19 16:50] LABS: Absolute Lymphocyte Count 1.47 X10^3/uL (0.83-4.51); Absolute Neutrophil Count 8.2 X10^3/uL (2.0-7.7); Basophil# 0.05 X10^3/uL; Basophil% 0.4 % (0-1); Eosinophil# 0.13 X10^3/uL; Eosinophils% 1.2 % (0-5); Hematocrit 39.7 % (40-54); Hemoglobin 13.8 g/dL (13.0-16.5); Lymphocyte # 1.47 X10^3/ul (0.83-4.51); Lymphocyte % 13.1 % (19-41); Mean Corp Hgb Conc 34.8 g/dL (32-36); Mean Corpuscular Hgb 31.7 pg (27.0-32.0); Mean Corpuscular Volume 91.3 fL (80-94); Monocyte# 1.37 X10^3/uL; Monocyte% 12.2 % (0-10); NRBC Flagged by Analyzer 0 % (0-5); Neutrophil # 8.17 X10^3/uL (2.7-7.7); Neutrophil % 72.7 % (47-70); Platelet Count 200 K/mm3 (150-450); RBC Distribution Width CV 11.3 % (11.6-14.6); RBC Distribution Width SD 38.2 fl (35.1-43.9); Red Blood Count 4.35 M/mm3 (4.6-6.2); White Blood Count 11.2 K/mm3 (4.4-11.0)
== END 2021-09-19 17:16 | disposition home or self-care (01) ==
PROVIDERS: Nurse Practitioner; Emergency Provider Emergency Medicine; Visit Provider Emergency Medicine
DX: J02.0 Streptococcal pharyngitis (principal); F17.210 Nicotine dependence, cigarettes, uncomplicated
CPT/HCPCS: 85025; 87077; 87880; 99282

== ENCOUNTER 2022-05-30 14:38 | Emergency (ER) | payer MEDICAID, SELFPAY ==
[2022-05-30 14:40] VITALS: BP 134/78; PULSE 78; RESP 16; TEMP 36.6; O2SAT 98; BMI 19.7
--- NOTE | 2022-05-30 15:11 | CT_ITS ---
STUDY: CT BRAIN WITHOUT CONTRAST REASON FOR EXAM: Male, 31 years old. Confusion. Memory issues. Multi drug use. RADIATION DOSAGE (If Supplied By Facility): CTDIvol = ( 44.99 ) mGy, DLP = ( 812.98 ) mGycm TECHNIQUE: Transaxial CT imaging of the brain was performed without administration of intravenous contrast material. Individualized dose optimization techniques were used for this CT. COMPARISON: No relevant priors. FINDINGS: Normal soft tissue structures. Normal calvarium. Normal size ventricles and extra-axial spaces for the patient''s age. Normal white matter tracts of the cerebral hemispheres. Normal basal ganglia and thalami. Normal brainstem. Normal cerebellum. There is no intracranial hemorrhage. There are no findings of an acute ischemic infarction. Normal visualized paranasal sinuses. CT/Brain/Head without Contrast IMPRESSION: Normal unenhanced CT scan of the brain. AIDOC was utilized to assist in identifying pertinent positive findings in this case. Electronically Signed: Zechariah Childs DO at 16:03 EST ,
--- NOTE | 2022-05-30 15:13 | EX.ED.DYSGE1 ---
HPI History of Present Illness Chief Complaint: Mental Health Informant: patient Narrative Narrative: Patient is wondering if he is forgetting things. At first he says this has been going on for a long time. He then states that he its been going on more since Thursday or Thursday. He states that people such as his family are getting upset with him. He gets the impression that he said something to upset them but he does not recall saying anything to upset them. He is not hearing voices or seeing things. He admits he has had depression and used to be on Zoloft but it was years ago. He has been working a new job for the last 2 weeks that is second shift but states he is used to working second shift so the sleep cycle does not bother him. He has been eating and drinking. He has not felt ill. He just states that it seems like people are upset with him and he is not exactly sure why. It sounds like this is a chronic problem but worse recently. He is not able to give me any specific examples of this occurring. I have to ask him most questions many times. He tends to mumble and this does make hearing difficult. But his story is consistent. He is not at all confused. [facility] Medical History Anxiety Bipolar disorder Depression Home Medications cyclobenzaprine 10 mg tablet 10 mg PO TID PRN Muscle Spasm #20 tabs 09/05/19 [Rx Last Taken Unknown] naproxen 500 mg tablet 500 mg PO BID PRN #20 tabs 09/05/19 [Rx Last Taken Unknown] ondansetron 4 mg disintegrating tablet 4 mg PO Q8H PRN nausea and vomiting #10 tabs 05/15/21 [Rx Last Taken Unknown] hydrocortisone 2.5 % topical cream 1 applic topical BID 7 days #30 grams 05/17/21 [Rx Last Taken Unknown] penicillin V potassium 500 mg tablet 500 mg PO 4X/DAY #28 tabs 09/19/21 [Rx Last Taken Unknown] Allergy/AdvReac Type Severity Reaction Status Date / Time No Known Allergies Allergy Verified 05/30/22 14:39 Surgical History Hx of appendectomy Social History Smoking Status: Current every day smoker tobacco type: cigarettes ROS ROS ED Constitutional Constitutional ED: Denies chills, fever(s) or subjective Eyes Eyes: Denies change in vision or diplopia ENT ENT ED: Denies rhinorrhea Cardiovascular Cardiovascular: Denies chest pain or palpitations Respiratory/Chest Respiratory/Chest: Denies cough or dyspnea Gastrointestinal Gastrointestinal: Denies abdominal pain, diarrhea, nausea or vomiting Genitourinary Genitourinary ED: Denies hematuria Musculoskeletal Musculoskeletal: Denies myalgias Integumentary Denies rash Neurologic Neurologic: Denies headache(s), paresthesias or weakness Psychiatric Psychiatric: Reports depression; Denies suicidal ideation or suicidal thoughts Endocrine Endocrinology: Denies polydipsia or polyuria Hematologic/Lymphatic Hematologic/Lymphatic: Denies anemia Allergic/Immunologic Allergic/Immunologic ED: Denies urticaria EXAM Physical Exam Narrative Exam Narrative: Patient is awake alert sitting in bed. He looks comfortable. HEENT shows moist mucous membranes. No sign of trauma. Eyes show no icterus or pallor. Lungs are clear bilaterally. Easy breathing. Saturations are normal at 98% on room air. Heart is regular without murmur gallop or rub. Pulses are equal and normal. Abdomen is soft thin and nontender shows no suprapubic or CVA tenderness Extremities show no tenderness. Neurologically he is awake alert to person place time and situation. Psychiatry: He does have a flat affect. He is a little bit slow to answer questions but not excessively so. He denies suicidal homicidal thoughts. He does not appear to have flight of ideas. There is no indication of hallucinations. Const Vital Signs: 05/30/22 14:40 Temperature 97.8 F Temperature Source Temporal Pulse Rate 78 Respiratory Rate 16 Blood Pressure 134/78 H Blood Pressure Mean 96 Pulse Ox 98 Oxygen Delivery Method Room Air MDM MDM MDM Narrative Medical decision making narrative: Patient CBC shows normal hemoglobin and platelets. Minimal nonspecific elevation of the white count. Electrolytes are normal other than potassium minimally low at 3.4. This will self-correct with diet and I discussed this with the patient. Calcium and glucose are also normal. My independent interpretation of the patient's CT scan of the head without contrast shows no mass bleeding or acute process. Final reading is normal unenhanced CT scan of the brain. Lab Data Attestation: I reviewed the patient's lab results. Labs: Laboratory Results - last 24 hr 05/30/22 05/30/22 15:20 15:20 WBC 11.7 H RBC 4.18 L Hgb 13.3 Hct 39.8 L MCV 95.2 H MCH 31.8 MCHC 33.4 RDW Std Deviation 40.4 RDW Coeff of Sylvester 11.7 Plt Count 277 MPV 9.6 Immature Gran % (Auto) 0.300 Neut % (Auto) 70.1 H Lymph % (Auto) 14.7 L Sierra % (Auto) 12.8 H Eos % (Auto) 1.2 Baso % (Auto) 0.9 Absolute Neuts (auto) 8.2 H Absolute Lymphs (auto) 1.73 Nucleated RBC % 0 Sodium 144 Potassium 3.4 L Chloride 108 H Carbon Dioxide 31.0 Anion Gap 5 BUN 17 Creatinine 0.92 Estim Creat Clear Calc 110.67 Est GFR (MDRD) Af Amer 125 Est GFR (MDRD) Non-Af 103 BUN/Creatinine Ratio 18.5 Glucose 98 Calcium 9.2 Radiography Diagnostic Testing: Clinical Impression(s) from Imaging Studies Brain CT 05/30/22 15:11 IMPRESSION: Normal unenhanced CT scan of the brain. AIDOC was utilized to assist in identifying pertinent positive findings in this case. Electronically Signed: Zechariah Childs DO at 16:03 EST Reading Location ID and State: [address] [place] [address] Tel [phone], Service support , Discharge Plan Triage Chief Complaint: Mental Health ED Provider: Junito Pires Dx/Rx/DC Orders Clinical Impression: Memory changes Instructions: ED Confusion Prescriptions: No Action cyclobenzaprine 10 MG tablet 10 mg PO TID PRN (Reason: Muscle Spasm) Qty: 20 0RF naproxen 500 MG tablet 500 mg PO BID PRN Qty: 20 0RF ondansetron 4 mg tablet,disintegrating 4 mg PO Q8H PRN (Reason: nausea and vomiting) Qty: 10 0RF hydrocortisone 2.5 % cream 1 applic topical BID 7 Days Qty: 30 0RF penicillin V potassium 500 mg tablet 500 mg PO 4X/DAY Qty: 28 0RF Primary Care Provider: Emil Lopez Referrals: Emil Lopez MD [Med Staff - Industrial Photographer] - 3-5 Days Care Physician,No Primary [Non-Staff] - Disposition Disposition: Home, Self Care
[2022-05-30 15:36] LABS: Absolute Lymphocyte Count 1.73 X10^3/uL (0.83-4.51); Absolute Neutrophil Count 8.2 X10^3/uL (2.0-7.7); Basophil% 0.9 % (0-1); Eosinophil# 0.14 X10^3/uL; Eosinophils% 1.2 % (0-5); Hematocrit 39.8 % (40-54); Hemoglobin 13.3 g/dL (13.0-16.5); Lymphocyte # 1.73 X10^3/ul (0.83-4.51); Lymphocyte % 14.7 % (19-41); Mean Corp Hgb Conc 33.4 g/dL (32-36); Mean Corpuscular Hgb 31.8 pg (27.0-32.0); Mean Corpuscular Volume 95.2 fL (80-94); Mean Platelet Vol. 9.6 fl (6.2-12.0); Monocyte% 12.8 % (0-10); NRBC Flagged by Analyzer 0 % (0-5); Neutrophil # 8.24 X10^3/uL (2.7-7.7); Neutrophil % 70.1 % (47-70); Platelet Count 277 K/mm3 (150-450); RBC Distribution Width CV 11.7 % (11.6-14.6); RBC Distribution Width SD 40.4 fl (35.1-43.9); Red Blood Count 4.18 M/mm3 (4.6-6.2); White Blood Count 11.7 K/mm3 (4.4-11.0)
[2022-05-30 15:50] LABS: Anion Gap 5 (5-15); BUN 17 mg/dL (7-18); BUN/Creat Ratio 18.5 RATIO (10-20); Calcium,Total 9.2 mg/dL (8.5-10.1); Chloride 108 mmol/L (98-107); Creatinine, Serum 0.92 mg/dL (0.70-1.30); EST Glomerular Filtration Rate 103 mL/min (>60); Est Glom Filt Rate - Afr Amer 125 mL/min (>60); Estimated Creatinine Clearance 110.67 ml/min; Glucose 98 mg/dL (74-106); Potassium 3.4 mmol/L (3.5-5.1); Sodium Level 144 mmol/L (136-145)
--- NOTE | 2022-05-30 16:19 | CM.ED ---
Social Work Note Referral Source: Case find Referral Reason: Mental Health SW reviewed patient's chart to review note from triage, patient reports struggling with missing memories but denies SI/HI. SW to review with MD. SW met with MD Pires and reviewed patient's recent symptoms. MD reports patient has a history of depression, current flat affect but denies SI/HI. Patient at ED due to being concerned with forgetting things. Patient reported to MD he has been forgetting things since Thursday, explaining people have been getting mad at the patient due to things he says, however, the patient has been unable to recall what he said. MD to medically clear and will inform ROBYN if further SW eval is necessary. Hilda Jacobo SUCKER MACHINE OPERATOR, [place]
== END 2022-05-30 16:38 | disposition home or self-care (01) ==
PROVIDERS: Emergency Provider Emergency Medicine; PCP Internal Medicine; Visit Provider Emergency Medicine
DX: R41.3 Other amnesia (principal); F32.A Depression, unspecified; F17.210 Nicotine dependence, cigarettes, uncomplicated
CPT/HCPCS: 85025; 80048; 99282; 70450

== ENCOUNTER 2022-05-30 18:10 | Emergency (ER) | payer MEDICAID, SELFPAY ==
[2022-05-30 18:10] VITALS: BP 169/99; PULSE 100; RESP 19; TEMP 35.8; BMI 22.5
--- NOTE | 2022-05-30 18:49 | EX.ED.DYSGE1 ---
HPI History of Present Illness Chief Complaint: Shortness of Breath Informant: patient Narrative Narrative: Patient Lorena presents but now has a complaint of dyspnea. He states he was not short of breath before. But he was walking and got long-term home and noticed that he felt a little short of breath. He does not know if that this was from the cigarette or the cold. But now it is totally resolved. He was not wheezing. He states he made himself cough but has not been coughing. He never had chest pain. He had no palpitations. He denies history of asthma. He denies all other complaints. Patient still has a somewhat flat affect. I asked him if there is anything else he needed to talk about. I explained that is not common that we get young healthy people who have 2 separate visits to the emergency department for 2 separate complaints. I asked him if he has more depression than normal. He states he might. He still denies suicidal or homicidal thoughts. He denies hearing voices or seeing anything. He is very nonspecific. I asked if there is anything else he needs to talk to us because I get the feeling that there is something he wants to talk about but has not yet shared it. He shrugged his shoulders but did not answer specifically. [facility] Medical History Anxiety Bipolar disorder Depression Home Medications cyclobenzaprine 10 mg tablet 10 mg PO TID PRN Muscle Spasm #20 tabs 09/05/19 [Rx Last Taken Unknown] naproxen 500 mg tablet 500 mg PO BID PRN #20 tabs 09/05/19 [Rx Last Taken Unknown] ondansetron 4 mg disintegrating tablet 4 mg PO Q8H PRN nausea and vomiting #10 tabs 05/15/21 [Rx Last Taken Unknown] hydrocortisone 2.5 % topical cream 1 applic topical BID 7 days #30 grams 05/17/21 [Rx Last Taken Unknown] penicillin V potassium 500 mg tablet 500 mg PO 4X/DAY #28 tabs 09/19/21 [Rx Last Taken Unknown] Allergy/AdvReac Type Severity Reaction Status Date / Time No Known Allergies Allergy Verified 05/30/22 18:13 Surgical History Hx of appendectomy Social History Smoking Status: Current every day smoker tobacco type: cigarettes ROS ROS ED Constitutional Constitutional ED: Denies chills or fever(s) Eyes Eyes: Denies change in vision ENT ENT ED: Denies rhinorrhea or sore throat Cardiovascular Cardiovascular: Denies chest pain or palpitations Respiratory/Chest Respiratory/Chest: Reports dyspnea and other Details: Now resolved. See history of present illness Gastrointestinal Gastrointestinal: Denies abdominal pain, nausea or vomiting Genitourinary Genitourinary ED: Denies dysuria Musculoskeletal Musculoskeletal: Denies myalgias Integumentary Denies rash Neurologic Neurologic: Denies headache(s), paresthesias or weakness Psychiatric Psychiatric: Reports depression; Denies anxiety, suicidal ideation or suicidal thoughts Endocrine Endocrinology: Denies polydipsia or polyuria Hematologic/Lymphatic Hematologic/Lymphatic: Denies easy bleeding or easy bruising Allergic/Immunologic Allergic/Immunologic ED: Denies urticaria EXAM Physical Exam Narrative Exam Narrative: Patient is awake and alert. He is sitting quietly on the bed. He has the same quiet voice that he had before. His eye contact is not the best. But he is consistent in his answers. I also note that he has several bags of items with him. These look like groceries. He states that he does have a place to live and to stay. He is not homeless. HEENT shows no trauma. Mucous membranes are moist. Eyes show no icterus. Neck is supple. No stridor. No trouble speaking. Lungs are completely clear. Saturation is not recorded on the initial vitals but it was in fact 100% on room air showing no hypoxia. He has no pain with a deep breath. No rib tenderness. Heart is regular. Rate of about 85. I hear no murmur gallop or rub. He has normal pulses. Abdomen is soft thin and completely nontender Extremities show no tenderness cords edema or asymmetry. Neurologically he is awake alert and appropriate. He is oriented x3. He has a stable gait and coordination. Psychiatry: He does have a somewhat flat affect. But no flight of ideas. No indication of hallucinations. He is denying suicidal homicidal thoughts. He states he might be a little bit more depressed but does have a history of depression and has been off Zoloft for years. But again, no suicidal or homicidal thoughts. Const Vital Signs: 05/30/22 18:10 05/30/22 18:15 Temperature 96.4 F L Temperature Source Temporal Pulse Rate 100 Respiratory Rate 19 H Respiratory Effort Normal Respiratory Depth Normal Respiratory Pattern Normal Blood Pressure 169/99 H Blood Pressure Mean 122 Oxygen Delivery Method Room Air Room Air MDM MDM MDM Narrative Medical decision making narrative: I am concerned about this patient with couple visits and one evening. He has somewhat nonspecific complaints. He seems to have a flat affect. But I am not seeing any acute psychosis or confusion. We will see if crisis can talk to him just to see if we can find out if there is a need that he is not sharing with me that were able to help him with We did have crisis talk to the patient. They also agree that he does not need admission. He is not suicidal homicidal. He evidently does have a history depression which he told me. He has never followed up with visits. They have made appointments and follow-up with him. They will follow-up. He seems to agree to want to do this. But I have no reason to work him up further at this time. He is not hypoxic. His lungs are clear. He has no symptoms at this time. He got mildly short of breath when he was smoking out in the cold. I do not think this patient needs EKG his heart is quite regular. Pulses are normal. He never had chest pain or palpitations. I do not think an x-ray is going to contribute to this. I think we can get him home at this time. I again asked him if there is anything else that he needs, wants or would like to talk about. There is nothing at this time. Discharge Plan Triage Chief Complaint: Shortness of Breath ED Provider: Junito Pires Dx/Rx/DC Orders Clinical Impression: History of dyspnea, Flat affect Instructions: ED Symptoms With Uncertain Cause Prescriptions: No Action cyclobenzaprine 10 MG tablet 10 mg PO TID PRN (Reason: Muscle Spasm) Qty: 20 0RF naproxen 500 MG tablet 500 mg PO BID PRN Qty: 20 0RF ondansetron 4 mg tablet,disintegrating 4 mg PO Q8H PRN (Reason: nausea and vomiting) Qty: 10 0RF hydrocortisone 2.5 % cream 1 applic topical BID 7 Days Qty: 30 0RF penicillin V potassium 500 mg tablet 500 mg PO 4X/DAY Qty: 28 0RF Primary Care Provider: Emil Lopez Referrals: Emil Lopez MD [Primary Care Provider] - 3-5 Days Disposition Disposition: Home, Self Care
== END 2022-05-30 20:04 | disposition home or self-care (01) ==
PROVIDERS: Emergency Provider Emergency Medicine; PCP Internal Medicine; Visit Provider Emergency Medicine
DX: R06.00 Dyspnea, unspecified (principal); F17.210 Nicotine dependence, cigarettes, uncomplicated; R41.3 Other amnesia; F32.A Depression, unspecified
CPT/HCPCS: 70450; 80048; 85025; 99282

== ENCOUNTER 2022-07-12 03:50 | Emergency (ER) | payer MEDICAID, SELFPAY ==
[2022-07-12 03:50] VITALS: BP 125/84; PULSE 105; RESP 18; TEMP 38.6; O2SAT 95; BMI 20.1
--- NOTE | 2022-07-12 04:22 | CT_ITS ---
INDICATION: Right peritonsillar abscess EXAMINATION: CT NECK WITH CONTRAST - CT Soft Tissue Neck W/ Contrast Injection TECHNIQUE: Helically acquired images were obtained of the neck with sagittal and coronal reconstructed images. Individualized dose optimization techniques were used for this CT. IV contrast dosage and agent: 75 mL of Isovue-370. COMPARISON: None. FINDINGS: NASOPHARYNX: Unremarkable. SUPRAHYOID NECK: Right peritonsillar fullness and stranding narrowing the adjacent pharynx. Right peritonsillar rim-enhancing fluid collection measuring approximately 2.0 x 1.5 x 1.8 cm. INFRAHYOID NECK: Unremarkable larynx, hypopharynx, and supraglottis. THYROID: No nodule or mass visualized. SALIVARY GLANDS: Unremarkable. LYMPH NODES: No evidence of adenopathy. VASCULAR STRUCTURES: Unremarkable. VISUALIZED PORTIONS OF THE ORBITS, PARANASAL SINUSES, MASTOID AIR CELLS AND SKULL BASE: Unremarkable. BONES: Unremarkable. THORACIC INLET: Visualized lung apices are clear. CT/Soft Tissue Neck WITH Contrast IMPRESSION: Right peritonsillar abscess. Electronically Signed: Esau Dodd DO at 5:17 EDT ,
[2022-07-12] MEDS: Ondansetron 4 MG/2 ML Vial IV (04:35)
[2022-07-12] MEDS: Morphine 4 MG/ML Syringe IV (04:35)
[2022-07-12] MEDS: Acetaminophen 160 MG/5 ML UDC 650 MG PO (04:37)
[2022-07-12 04:38] LABS: Absolute Lymphocyte Count 1.79 X10^3/uL (0.83-4.51); Absolute Neutrophil Count 18.3 X10^3/uL (2.0-7.7); Basophil# 0.19 X10^3/uL; Basophil% 0.8 % (0-1); Eosinophil# 0.06 X10^3/uL; Eosinophils% 0.3 % (0-5); Hematocrit 39.5 % (40-54); Hemoglobin 13.3 g/dL (13.0-16.5); Lymphocyte # 1.79 X10^3/ul (0.83-4.51); Lymphocyte % 7.5 % (19-41); Mean Corp Hgb Conc 33.7 g/dL (32-36); Mean Corpuscular Hgb 31.7 pg (27.0-32.0); Mean Corpuscular Volume 94.3 fL (80-94); Mean Platelet Vol. 9.3 fl (6.2-12.0); Monocyte# 3.16 X10^3/uL; Monocyte% 13.2 % (0-10); NRBC Flagged by Analyzer 0 % (0-5); Neutrophil # 18.33 X10^3/uL (2.7-7.7); Neutrophil % 76.4 % (47-70); POSITIVE DIFFERENTIAL YES; Platelet Count 261 K/mm3 (150-450); RBC Distribution Width CV 11.6 % (11.6-14.6); Red Blood Count 4.19 M/mm3 (4.6-6.2)
[2022-07-12] MEDS: 0.9% Normal Saline 1,000 ML 999 ML IV (04:39)
[2022-07-12 04:55] LABS: Anion Gap 3 (5-15); BUN 13 mg/dL (7-18); BUN/Creat Ratio 17.6 RATIO (10-20); Calcium,Total 9.4 mg/dL (8.5-10.1); Chloride 100 mmol/L (98-107); Creatinine, Serum 0.74 mg/dL (0.70-1.30); EST Glomerular Filtration Rate 133 mL/min (>60); Est Glom Filt Rate - Afr Amer 161 mL/min (>60); Estimated Creatinine Clearance 140.21 ml/min; Glucose 117 mg/dL (74-106); Potassium 3.7 mmol/L (3.5-5.1); Sodium Level 134 mmol/L (136-145)
[2022-07-12 04:56] LABS: Differential Indicated SCAN CRITERIA MET
[2022-07-12 05:33] LABS: Differential Comment SCANNED
[2022-07-12 05:51] VITALS: BP 112/78; PULSE 72; RESP 15; O2SAT 94
[2022-07-12] MEDS: Tetracaine/Benzocaine/Butamben 1 APPLIC TOPICAL (06:19)
--- NOTE | 2022-07-12 07:37 | EX.ED.DYSGE1 ---
HPI History of Present Illness Chief Complaint: Ear Problem Informant: patient Narrative Narrative: Patient is a 31-year-old male with past medical history of anxiety depression bipolar disorder and polysubstance abuse. He states that over the past 2 days he has noticed some pain in his throat and right ear. He states there is been no discharge from his ear or decreased hearing but he is concerned he has developed an ear infection and with this comes in for evaluation. [facility] Medical History Anxiety Bipolar disorder Depression Home Medications amoxicillin 400 mg-potassium clavulanate 57 mg/5 mL oral suspension 11 ml PO BID 10 days #220 mL 07/12/22 [Rx Last Taken Unknown] oxycodone 5 mg/5 mL oral solution 5 mg (5 mL) PO Q6H PRN pain 3 days #60 mL 07/12/22 [Rx Last Taken Unknown] Allergy/AdvReac Type Severity Reaction Status Date / Time No Known Allergies Allergy Verified 07/12/22 03:53 Surgical History Hx of appendectomy Social History Smoking Status: Current every day smoker tobacco type: cigarettes ROS ROS ED Constitutional Constitutional ED: Denies chills or fever(s) ENT ENT ED: Reports ear pain right; Denies sore throat Cardiovascular Cardiovascular: Denies chest pain Respiratory/Chest Respiratory/Chest: Denies cough or dyspnea Gastrointestinal Gastrointestinal: Denies abdominal pain, diarrhea, nausea or vomiting Genitourinary Genitourinary ED: Denies dysuria Musculoskeletal Musculoskeletal: Denies myalgias Integumentary Denies rash Neurologic Neurologic: Denies headache(s) Hematologic/Lymphatic Hematologic/Lymphatic: Denies easy bleeding or easy bruising EXAM Physical Exam Const Vital Signs: 07/12/22 03:50 07/12/22 05:51 Temperature 101.4 F H Temperature Source Temporal Pulse Rate 105 H 72 Respiratory Rate 18 15 Blood Pressure 125/84 H 112/78 Blood Pressure Mean 97 89 Pulse Ox 95 94 Oxygen Delivery Method Room Air Room Air Positive well nourished and well developed General Appearance ED: well developed HEENT HEENT Narrative: Patient has multiple dental caries noted. There is asymmetric swelling of the right tonsil compared to left with loss of the peritonsillar crypt consistent with right-sided peritonsillar abscess. Despite this there is no change in voice or difficulty with secretions or trismus noted. Eyes PERRL and EOMs intact bilaterally Neck supple Neck Narrative: Positive right sided anterior cervical of adenopathy noted Resp normal respiratory effort and clear to auscultation bilaterally Resp Narrative: No nasal flaring retractions tachypnea or accessory muscle use Cardio regular rate and regular rhythm Extremity normal to inspection Neuro oriented x3 and CN's II-XII intact bilaterally Sensorium / Orientation: alert Psych mental status grossly normal Skin no rashes or lesions noted MDM MDM MDM Narrative Medical decision making narrative: Patient presented to the ER febrile but otherwise with stable blood pressure and in no acute respiratory distress. His physical exam is consistent for a peritonsillar abscess and secondary to this basic blood work and a CT scan of the soft tissue neck was obtained. White count is elevated at 24 but his lactic acid is normal. After he was given liquid Tylenol which he was able to swallow his heart rate improved. The CAT scan showed a 2 x 1.5 x 1.8 cm area of abscess formation consistent with exam. However there is no airway compromise which also correlates with the patient's physical exam. The case was discussed with ENT on-call Dr. Cowan. He states that this time based on its size and the fact there is no airway compromise that I can drain it in the emergency. This was done as documented below. Following this the patient had improvement of his swelling and pain. He was washed in the ER and there is no further bleeding. He remains in no respiratory distress and is still able to tolerate secretions and does not have trismus or change in voice. Therefore at this time we will place him on antibiotics as well as pain medication secondary to the abscess and he can follow-up with ENT on Thursday. He does agree to return to the hospital if he has worsening of symptoms despite antibiotic use Patient had a Cetacaine spray applied to the back of the throat. A tongue depressor was used to displace the cheek and tongue. A #11 blade was used to make a 1 cm incision over top the midportion of the right tonsil. There was expression of blood and purulent material. The patient tolerated procedure well without complication. History & Record Review Discussion w/independent historian: Patient Lab Data Attestation: I reviewed the patient's lab results. Labs: Laboratory Results - last 24 hr 07/12/22 07/12/22 07/12/22 04:33 04:33 04:33 WBC 24.0 H RBC 4.19 L Hgb 13.3 Hct 39.5 L MCV 94.3 H MCH 31.7 MCHC 33.7 RDW Std Deviation 40.0 RDW Coeff of Sylvester 11.6 Plt Count 261 MPV 9.3 Immature Gran % (Auto) 1.800 H Neut % (Auto) 76.4 H Lymph % (Auto) 7.5 L Latimer % (Auto) 13.2 H Eos % (Auto) 0.3 Baso % (Auto) 0.8 Absolute Neuts (auto) 18.3 H Absolute Lymphs (auto) 1.79 Nucleated RBC % 0 Differential Comment SCANNED Diff Path Review May foll Sodium 134 L Potassium 3.7 Chloride 100 Carbon Dioxide 31.0 Anion Gap 3 L BUN 13 Creatinine 0.74 Estim Creat Clear Calc 140.21 Est GFR (MDRD) Af Amer 161 Est GFR (MDRD) Non-Af 133 BUN/Creatinine Ratio 17.6 Glucose 117 H Lactic Acid 1.0 Calcium 9.4 Radiography Diagnostic Testing: Clinical Impression(s) from Imaging Studies Soft Tissue Neck CT 07/12/22 04:22 IMPRESSION: Right peritonsillar abscess. Electronically Signed: Esau Dodd DO at 5:17 EDT Reading Location ID and State: [facility] / [place] Tel , Service support , Management Discussion w/another healthcare provider: Outside Sales Manager Discharge Plan Triage Chief Complaint: Ear Problem ED Provider: Fernando Horta Dx/Rx/DC Orders Clinical Impression: Peritonsillar abscess, Hx of bipolar disorder Instructions: ED Peritonsillar Abscess Prescriptions: New amoxicillin-pot clavulanate 400-57 mg/5 mL suspension for reconstitution 11 ml PO BID 10 Days Qty: 220 0RF oxycodone 5 mg/5 mL solution 5 mg PO Q6H PRN (Reason: pain) 3 Days Qty: 60 0RF Primary Care Provider: Emil Lopez Referrals: Lowell Fishman MD [Med Staff - Active Staff] - Emil Lopez MD [Primary Care Provider] - Activity Restrictions/Additional Instructions: Take your antibiotic as directed to help resolve your infection. It will typically take 2 to 3 days to notice significant improvement. If you develop difficulty swallowing your liquid antibiotics or even your saliva or you have difficulty breathing or any further concerns please return to the hospital for repeat evaluation Disposition Disposition: Home, Self Care
[2022-07-12 07:51] VITALS: RESP 16
[2022-07-14 11:58] LABS: Pathologist Review Reviewed
== END 2022-07-12 07:53 | disposition home or self-care (01) ==
PROVIDERS: Emergency Provider Emergency Medicine; PCP Internal Medicine; Visit Provider Emergency Medicine
DX: J36 Peritonsillar abscess (principal); F31.9 Bipolar disorder, unspecified; F17.210 Nicotine dependence, cigarettes, uncomplicated
CPT/HCPCS: 70491; 80048; 83605; 85025; 96365; 96375; 99284; J7030; Q9967; A4216; J2405

== ENCOUNTER 2022-07-13 12:32 | Emergency (ER) | payer MEDICAID, SELFPAY ==
[2022-07-13 12:33] VITALS: BP 127/82; PULSE 87; RESP 18; TEMP 36.6; O2SAT 98
--- NOTE | 2022-07-13 12:43 | EX.ED.DYSGE1 ---
HPI <TWILA Prather - Last Filed: 07/13/22 16:07> History of Present Illness Chief Complaint: General Illness Narrative Narrative: Patient presenting today with throat pain and difficulty swallowing after having an I&D of a right-sided peritonsillar abscess on 07/12/2022 here in the emergency department. He states that he is having a difficult time swallowing his saliva and has not eaten anything in over 2 days. Patient was placed on liquid antibiotic and has only taken 1 dose because he is having a difficult time swallowing. He states he felt warm last night but is unsure if he had a fever. He denies any difficulty breathing, nausea, vomiting, and abdominal pain. PFSH <TWILA Prather - Last Filed: 07/13/22 16:07> PFS Medical History Anxiety Bipolar disorder Depression Home Medications amoxicillin 400 mg-potassium clavulanate 57 mg/5 mL oral suspension 11 ml PO BID 10 days #220 mL 07/12/22 [Rx Last Taken Unknown] oxycodone 5 mg/5 mL oral solution 5 mg (5 mL) PO Q6H PRN pain 3 days #60 mL 07/12/22 [Rx Last Taken Unknown] Allergy/AdvReac Type Severity Reaction Status Date / Time No Known Allergies Allergy Verified 07/13/22 12:34 Surgical History Hx of appendectomy Social History Smoking Status: Current every day smoker tobacco type: cigarettes ROS <TWILA Prather - Last Filed: 07/13/22 16:07> ROS ED Constitutional Constitutional ED: Reports sweats; Denies chills or fever(s) ENT ENT ED: Reports sore throat and throat swelling Cardiovascular Cardiovascular: Denies chest pain or palpitations Respiratory/Chest Respiratory/Chest: Denies cough or dyspnea Gastrointestinal Gastrointestinal: Denies abdominal pain, nausea or vomiting Genitourinary Genitourinary ED: Denies dysuria, hematuria or urinary urgency Musculoskeletal Musculoskeletal: Denies arthralgias or myalgias Integumentary Reports abscess; Denies Abrasions or rash Neurologic Neurologic: Denies weakness Psychiatric Psychiatric: Denies anxiety, depression, suicidal ideation or suicidal thoughts EXAM <TWILA Prather - Last Filed: 07/13/22 16:07> Physical Exam Const Vital Signs: 07/13/22 12:33 07/13/22 15:17 Temperature 98 F Temperature Source Temporal Pulse Rate 87 78 Respiratory Rate 18 16 Blood Pressure 127/82 H 120/87 H Blood Pressure Mean 97 98 Pulse Ox 98 95 Oxygen Delivery Method Room Air Room Air Positive well nourished, well developed and no apparent distress General Appearance ED: well developed HEENT Reports normocephalic and head/scalp atraumatic HEENT Narrative: Right-sided tonsillar swelling consistent with a peritonsillar abscess. Patient is tolerating secretions. No dysphonia. Mouth ED: Yes moist mucous membranes normal Eyes PERRL and EOMs intact bilaterally Neck full ROM and supple Chest Wall inspection of chest normal Resp normal respiratory effort and clear to auscultation bilaterally Cardio regular rate and regular rhythm GI soft to palpation, non-tender, non-distended and no masses Back/Spine normal ROM and normal to inspection Extremity normal to inspection and full ROM Neuro oriented x3, CN's II-XII intact bilaterally, moves all extremities, no focal motor deficits and no sensory deficits noted Sensorium / Orientation: awake and alert Psych mental status grossly normal and thought process normal Skin no rashes or lesions noted and no wounds <Dr. Jeff Corrales MD - Last Filed: 07/13/22 13:19> Physical Exam Const Vital Signs: 07/13/22 12:33 07/13/22 15:17 Temperature 98 F Temperature Source Temporal Pulse Rate 87 78 Respiratory Rate 18 16 Blood Pressure 127/82 H 120/87 H Blood Pressure Mean 97 98 Pulse Ox 98 95 Oxygen Delivery Method Room Air Room Air MDM <TWILA Prather - Last Filed: 07/13/22 16:07> [facility] Narrative Medical decision making narrative: Patient presenting today with a peritonsillar abscess on the right side, I&D done here in the emergency department yesterday morning and a small amount of purulent material was appreciated. The area now appears larger and he is not tolerating outpatient antibiotics. Labs obtained and he has a WBC count of 20 which is improved from his visit yesterday. CT scan of soft tissue of the neck obtained and shows that the abscess is enlarged in comparison to the CT scan that was obtained yesterday. There is also a slightly larger degree of airway compromise when compared to yesterday. However, he is stable and is not short of breath, tachypneic, or struggling to breathe. he is tolerating his own secretions. We do not have ENT here this weekend. We have called [facility] and they are accepting the patient as a transfer as they do have ENT. We have started patient on Unasyn. He will be transferred in stable condition and is comfortable with plan. I have personally performed a face to face assessment of the patient and have reviewed the KIAN Note. I performed a substantive portion of the visit including all aspects of the following. My hurt findings include: History is 31-year-old male history of a peritonsillar abscess. I&D the other morning in the emergency department. Written for penicillin which she has not been taking due to the pain. I think he took 1 dose. Complaining of pain and swelling. He has not gotten to see a ENT yet he was just seen and discharged from the emergency department Thursday. Complaining of difficulty swallowing. Primarily pain. Exam is [22-year-old male vital signs stable afebrile. Does not look septic or toxic. Posterior pharynx is red. And large right-sided peritonsillar abscess. Able to swallow but difficult due to pain. No trouble breathing. Moist mucous membranes. Neck tenderness on the right anterior cervical chain. Fullness. Trachea midline. No respiratory distress. Lungs clear. Heart regular rhythm no murmur. Otherwise exam unremarkable. He is able to handle his own secretions.] Medical Decision Making [gentleman with a right peritonsillar abscess had I&D in the emergency department Thursday and he has failed outpatient therapy. 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 We will read CAT scan him and get labs and speak to other local hospitals to see if we can transfer him for ENT for formal incision and drainage. Will be started on IV Unasyn.] Other additions or changes: [None] Lab Data Lab results narrative: WBC 20, sodium 133, anion gap 4 Labs: Laboratory Results - last 24 hr 07/13/22 07/13/22 13:30 13:30 WBC 20.0 H RBC 4.06 L Hgb 12.8 L Hct 39.2 L MCV 96.6 H MCH 31.5 MCHC 32.7 RDW Std Deviation 40.9 RDW Coeff of Sylvester 11.5 L Plt Count 335 MPV 9.1 Immature Gran % (Auto) 1.900 H Neut % (Auto) 76.6 H Lymph % (Auto) 9.7 L Jones % (Auto) 10.4 H Eos % (Auto) 0.7 Baso % (Auto) 0.7 Absolute Neuts (auto) 15.3 H Absolute Lymphs (auto) 1.93 Nucleated RBC % 0 Differential Comment SCANNED Diff Path Review May foll Sodium 133 L Potassium 4.2 Chloride 97 L Carbon Dioxide 32.0 Anion Gap 4 L BUN 17 Creatinine 0.83 Estim Creat Clear Calc 124.69 Est GFR (MDRD) Af Amer 141 Est GFR (MDRD) Non-Af 117 BUN/Creatinine Ratio 20.6 H Glucose 99 Calcium 10.0 Radiography Diagnostic Testing: Clinical Impression(s) from Imaging Studies Soft Tissue Neck CT 07/13/22 13:14 IMPRESSION: Interval slight increase in the right peritonsillar abscess with increasing surrounding soft tissue edema extending into the right retropharyngeal soft tissues. Degree of airway compromise slightly decreased from prior study. Consider ENT consultation. Electronically Signed: Dk Giang MD at 15:28 EDT Reading Location ID and State: [facility] / [place] Tel , Service support , <Dr. Jeff Corrales MD - Last Filed: 07/13/22 13:19> [facility] MDM Narrative Medical decision making narrative: I have personally performed a face to face assessment of the patient and have reviewed the KIAN Note. I performed a substantive portion of the visit including all aspects of the following. My hurt findings include: History is 31-year-old male history of a peritonsillar abscess. I&D the other morning in the emergency department. Written for penicillin which she has not been taking due to the pain. I think he took 1 dose. Complaining of pain and swelling. He has not gotten to see a ENT yet he was just seen and discharged from the emergency department Thursday morning. Complaining of difficulty swallowing. Primarily pain. Exam is [22-year-old male vital signs stable afebrile. Does not look septic or toxic. Posterior pharynx is red. And large right-sided peritonsillar abscess. Able to swallow but difficult due to pain. No trouble breathing. Moist mucous membranes. Neck tenderness on the right anterior cervical chain. Fullness. Trachea midline. No respiratory distress. Lungs clear. Heart regular rhythm no murmur. Otherwise exam unremarkable. He is able to handle his own secretions.] Medical Decision Making [gentleman with a right peritonsillar abscess had I&D in the emergency department Thursday morning and he has failed outpatient therapy. 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 We will read CAT scan him and get labs and speak to other local hospitals to see if we can transfer him for ENT for formal incision and drainage. Will be started on IV Unasyn.] Other additions or changes: [None] History & Record Review Discussion w/independent historian: Patient Lab Data Attestation: I reviewed the patient's lab results. Labs: Laboratory Results - last 24 hr 07/13/22 07/13/22 13:30 13:30 WBC 20.0 H RBC 4.06 L Hgb 12.8 L Hct 39.2 L MCV 96.6 H MCH 31.5 MCHC 32.7 RDW Std Deviation 40.9 RDW Coeff of Sylvester 11.5 L Plt Count 335 MPV 9.1 Immature Gran % (Auto) 1.900 H Neut % (Auto) 76.6 H Lymph % (Auto) 9.7 L Jones % (Auto) 10.4 H Eos % (Auto) 0.7 Baso % (Auto) 0.7 Absolute Neuts (auto) 15.3 H Absolute Lymphs (auto) 1.93 Nucleated RBC % 0 Differential Comment SCANNED Diff Path Review May foll Sodium 133 L Potassium 4.2 Chloride 97 L Carbon Dioxide 32.0 Anion Gap 4 L BUN 17 Creatinine 0.83 Estim Creat Clear Calc 124.69 Est GFR (MDRD) Af Amer 141 Est GFR (MDRD) Non-Af 117 BUN/Creatinine Ratio 20.6 H Glucose 99 Calcium 10.0 Radiography Diagnostic Testing: Clinical Impression(s) from Imaging Studies Soft Tissue Neck CT 07/13/22 13:14 IMPRESSION: Interval slight increase in the right peritonsillar abscess with increasing surrounding soft tissue edema extending into the right retropharyngeal soft tissues. Degree of airway compromise slightly decreased from prior study. Consider ENT consultation. Electronically Signed: Dk Giang MD at 15:28 EDT Reading Location ID and State: [facility] / [place] Tel , Service support , Discharge Plan Triage Chief Complaint: General Illness ED Midlevel Provider: Stephie Jaime ED Provider: Jeff Corrales Dx/Rx/DC Orders Clinical Impression: Peritonsillar abscess Prescriptions: No Action amoxicillin-pot clavulanate 400-57 mg/5 mL suspension for reconstitution 11 ml PO BID 10 Days Qty: 220 0RF oxycodone 5 mg/5 mL solution 5 mg PO Q6H PRN (Reason: pain) 3 Days Qty: 60 0RF Primary Care Provider: Emil Lopez Referrals: Emil Lopez MD [Primary Care Provider] - Disposition Disposition: Acute Care Hospital Discharge Location: [facility] Discharge Date/Time: 07/13/22 15:37
--- NOTE | 2022-07-13 13:14 | CT_ITS ---
INDICATION: right peritonsillar abscess, difficulty swallowing after drainage EXAMINATION: CT NECK WITH CONTRAST - CT Soft Tissue Neck W/ Contrast Injection TECHNIQUE: Helically acquired images were obtained of the neck following IV contrast. A radiation dose optimization technique was used for this scan. IV Contrast dosage and agent: 75 cc Isovue-370 RADIATION DOSAGE (If Supplied By Facility): CTDIvol = ( 15.11 ) mGy, DLP = ( 475.69 ) mGycm COMPARISON: 07/12/2022 FINDINGS: NASOPHARYNX: Unremarkable. SUPRAHYOID NECK: Persistent right tonsillar enlargement with extensive adjacent soft tissue edema. Decreased narrowing of the pharyngeal airway compared to prior scan. Low-attenuation peripherally enhancing collection measures approximately 2.7 x 2.7 x 1.8 cm, mildly increased from the prior day''s measurements. Soft tissue edema extends more visibly into the right side of the retropharynx. INFRAHYOID NECK: Unremarkable larynx, hypopharynx, and supraglottis. THYROID: No focal lesions. SALIVARY GLANDS: Unremarkable. LYMPH NODES: Increasing size of multiple reactive right anterior cervical lymph nodes. VASCULAR STRUCTURES: Unremarkable. VISUALIZED PORTIONS OF THE ORBITS, PARANASAL SINUSES, MASTOID AIR CELLS AND SKULL BASE: Unremarkable. BONES: Unremarkable. THORACIC INLET: Clear lung apices. CT/Soft Tissue Neck WITH Contrast IMPRESSION: Interval slight increase in the right peritonsillar abscess with increasing surrounding soft tissue edema extending into the right retropharyngeal soft tissues. Degree of airway compromise slightly decreased from prior study. Consider ENT consultation. Electronically Signed: Dk Giang MD at 15:28 EDT ,
[2022-07-13 13:35] LABS: Absolute Lymphocyte Count 1.93 X10^3/uL (0.83-4.51); Absolute Neutrophil Count 15.3 X10^3/uL (2.0-7.7); Basophil# 0.14 X10^3/uL; Basophil% 0.7 % (0-1); Differential Indicated SCAN CRITERIA MET; Eosinophil# 0.13 X10^3/uL; Eosinophils% 0.7 % (0-5); Hematocrit 39.2 % (40-54); Hemoglobin 12.8 g/dL (13.0-16.5); Lymphocyte # 1.93 X10^3/ul (0.83-4.51); Lymphocyte % 9.7 % (19-41); Mean Corp Hgb Conc 32.7 g/dL (32-36); Mean Corpuscular Hgb 31.5 pg (27.0-32.0); Mean Corpuscular Volume 96.6 fL (80-94); Mean Platelet Vol. 9.1 fl (6.2-12.0); Monocyte# 2.08 X10^3/uL; Monocyte% 10.4 % (0-10); NRBC Flagged by Analyzer 0 % (0-5); Neutrophil # 15.34 X10^3/uL (2.7-7.7); Neutrophil % 76.6 % (47-70); POSITIVE DIFFERENTIAL YES; Platelet Count 335 K/mm3 (150-450); RBC Distribution Width CV 11.5 % (11.6-14.6); RBC Distribution Width SD 40.9 fl (35.1-43.9); Red Blood Count 4.06 M/mm3 (4.6-6.2)
[2022-07-13 13:47] LABS: Anion Gap 4 (5-15); BUN 17 mg/dL (7-18); BUN/Creat Ratio 20.6 RATIO (10-20); Chloride 97 mmol/L (98-107); Creatinine, Serum 0.83 mg/dL (0.70-1.30); EST Glomerular Filtration Rate 117 mL/min (>60); Est Glom Filt Rate - Afr Amer 141 mL/min (>60); Estimated Creatinine Clearance 124.69 ml/min; Glucose 99 mg/dL (74-106); Potassium 4.2 mmol/L (3.5-5.1); Sodium Level 133 mmol/L (136-145)
[2022-07-13] MEDS: Ondansetron 4 MG/2 ML Vial IV (13:54)
[2022-07-13] MEDS: Morphine 4 MG/ML Syringe 6 MG IV (13:54)
[2022-07-13 14:04] LABS: Differential Comment SCANNED
[2022-07-13 15:17] VITALS: BP 120/87; PULSE 78; RESP 16; O2SAT 95
[2022-07-14 12:18] LABS: Pathologist Review Reviewed
== END 2022-07-13 15:37 | disposition short-term general hospital (02) ==
LOC: ED 12:55
PROVIDERS: Emergency Provider Emergency Medicine; PCP Internal Medicine; Visit Provider Emergency Medicine
DX: J36 Peritonsillar abscess (principal); F17.210 Nicotine dependence, cigarettes, uncomplicated
CPT/HCPCS: 70491; 80048; 85025; 96365; 96375; 99283; Q9967; A4216; J0295; J2405